=== PATIENT | male | born 1955 | race Caucasian/White ===

== ENCOUNTER 2023-11-19 07:35 | Outpatient (AMB) | payer MEDICARE, SELFPAY ==
--- NOTE | 2023-11-19 07:41 | MHC.PC.OV ---
Vital Signs 11/19/23 07:47 Height 5 ft 5 in Weight 157 lb BMI 26.1 BP 124/64 Blood Pressure Location Lt brachial Position Sitting Pulse 71 Pulse Source Pulse Oximeter Pulse Oximetry (%) 95 Oxygen Delivery Method Room Air Intake Visit Reasons: New patient-Left leg discomfort Intake Note: Pt is here today as a New Patient to [facility] and c/o Lt leg discomfort Allergies No Known Allergies Allergy (Verified 11/19/23 07:47) Medication List - Last Reconciled 11/19/23 by Rosa Banegas MD No Known Home Meds Tobacco use date assessed: 11/19/23 Fall risk assessment: No Falls in past year Last assessed Fall Risk: 11/19/23 Dental Screening Dental Screen Date: 11/19/23 Did you have a dental visit in the last 12 months?: No Was dental information given to patient?: Patient declined HPI New patient-Left leg discomfort HPI Details Patient presents for new patient visit. He reports chronic left lower extremity discomfort and some swelling worse at the end of the day for many years. He denies leg ulcers. [facility] Surgical History (Updated 11/17/23 @ 14:32 by Kath Nogueira [facility]) History of prostate surgery Family History (Updated 11/19/23 @ 08:18 by Rosa Banegas MD) Mother Heart attack Father No problems noted. Social History Housing: House Patient Tobacco Use Status: Former Tobacco user e-Cigarette/Vaping Use: Never Used service: Yes Current occupational status: retired Cognitive needs: No Hearing needs: No Vision needs: Yes Questionnaire PHQ-9 Over the last 2 weeks, how often have you been bothered by any of the following problems? 1. Little interest or pleasure in doing things: several days 2. Feeling down, depressed, or hopeless: several days 3. Trouble falling or staying asleep, or sleeping too much: several days 4. Feeling tired or having little energy: several days 5. Poor appetite or overeating: not at all 6. Feeling bad about yourself - or that you are a failure or have let yourself or your family down: not at all 7. Trouble concentrating on things, such as reading the newspaper or watching television: not at all 8. Moving or speaking so slowly that other people could have noticed. Or the opposite - being so fidgety or restless that you have been moving around a lot more than usual: not at all 9. Thoughts that you would be better off or of hurting yourself in some way: not at all Total score: 4 Depression Screening Interpretation: Negative Depression Screening Done: Yes 00421 - PHQ-9 Billing: Yes Source: Developed by Drs. Hunter Adams, Inocencia Watters, Jason Franco and colleagues, with an educational ester from [employer]. Thrive Questionnaire Date Thrive assessed: 11/19/23 I am a: Patient What is your living situation today?: I have a steady place to live Within the past 12 months, did the food you bought not last and you didn't have the money to get more?: Sometimes True Within the past 12 months, did you worry whether your food would run out before you got money to buy more?: Sometimes True Do you have trouble paying for medicines?: Yes Do you have trouble getting transportation to medical appointments?: No Do you have trouble paying your heating and electricity bill?: Yes Do you have trouble taking care of your child, family member or friend?: No Do you have trouble with day-to-day activities such as bathing, preparing meals, shopping, managing finances, etc.?: No Are you currently unemployed and looking for a job?: No Are you interested in more education?: No THRIVE Score: 3 AUDIT C Alcohol Use Questionnaire (AUDIT-C) 1. How often do you have a drink containing alcohol?: Monthly or less 2. How many drinks containing alcohol do you have on a typical day when you are drinking?: 1 or 2 3. How often do you have six or more drinks on one occasion?: Never Total Score: 1 YESICA-7 AMB Questionnaire YESICA-7 Date YESICA - 7 assessed: 11/19/23 Feeling nervous, anxious, or on edge: 1 = Several days Not being able to stop or control worryin = Several days Worrying too much about different things: 2 = More than half the days Trouble relaxin = Several days Being so restless that it is hard to sit still: 1 = Several days Becoming easily annoyed or irritable: 2 = More than half the days Feeling afraid as if something awful might happen: 1 = Several days Total YESICA-7 score (0-4 normal; 5-9 mild; 10-14 moderate; 15-21 severe): 9 Source: Developed by Drs. Hunter Adams, Inocencia Watters, Jason Franco and colleagues, with an educational ester from [employer]. Review of Systems Const All systems reviewed & are unremarkable except as noted in HPI and below Reports no additional complaints Eyes Reports no additional complaints ENT Reports no additional complaints Card Reports no additional complaints Resp Reports no additional complaints GI Reports no additional complaints Reports no additional complaints Physical exam (Primary Care) Vital Signs: Last Vital Signs Pulse 71 11/19/23 07:47 BP 124/64 11/19/23 07:47 Pulse Ox 95 11/19/23 07:47 Oxygen Delivery Method Room Air 11/19/23 07:47 BMI result Body Mass Index 26.1 Tobacco/Smoking Status: Tobacco use Status Tobacco use date assessed 11/19/23 11/19/23 07:55 Patient Tobacco Use Status Former Tobacco user 11/19/23 07:55 e-Cigarette/Vaping Use Never Used 11/19/23 07:55 PHQ-9: PHQ-9 Score PHQ-9: Total score 4 11/19/23 07:55 Depression Screening Interpretation: Negative Thrive Assessment: Date of Thrive Assessment Date Thrive assessed 11/19/23 11/19/23 07:55 Const General: no acute distress HENMT Head: Yes normal to inspection Ears: hearing grossly normal bilaterally Face and sinus: Yes normal facial exam Mouth: Normal oral and palatal mucosa present Throat: Yes posterior oropharynx normal Eyes General: appearance normal, both eyes and all related structures Neck Neck: Yes no lymphadenopathy and Yes supple Resp Effort & Inspection: normal respiratory effort Auscultation: clear to auscultation bilaterally Cardio Rhythm: regular rhythm Heart sounds: S1 normal heart sound present and S2 normal heart sound present GI Inspection: Yes normal to inspection Palpation (GI): Soft to palpation Percussion: Yes normal to percussion Auscultation: normal bowel sounds Assessment and Plan Assessment & Plan (1) Annual physical exam: Code(s): Z00.00 - Encounter for general adult medical examination without abnormal findings Plan: WELL-BALANCED DIET REGULAR EXERCISE DISCUSSED WITH THE PATIENT. HE WILL RETURN FOR FASTING BLOOD WORK. PATIENT DECLINED COLONOSCOPY COLOGUARD WILL BE ORDERED (2) BPH (benign prostatic hyperplasia): Comment: S/P TURP x2, 202, 2022 , f/u PVU annual Code(s): N40.0 - Benign prostatic hyperplasia without lower urinary tract symptoms Plan: FOLLOW-UP WITH UROLOGY (3) Varicose veins of both lower extremities: Code(s): I83.93 - Asymptomatic varicose veins of bilateral lower extremities Plan: PATIENT WAS ADVISED TO WEAR COMPRESSION KNEE-HIGHS. HE DECLINED REFERRAL TO VASCULAR SURGEON Orders: Referrals Cologuard Test Z12.11 - Encounter for screening for malignant neoplasm of colon, Z12.12 - Encounter for screening for malignant neoplasm of rectum Coding Level of Care Code New Pt Level 4 (87245) Diagnoses Annual physical exam Z00.00 BPH (benign prostatic hyperplasia) N40.0 Varicose veins of both lower extremities I83.93
[2023-11-19 07:47] VITALS: BP 124/64; PULSE 71; O2SAT 95; BMI 26.1
== END 2023-11-19 08:32 | disposition home or self-care (01) ==
PROVIDERS: PCP Internal Medicine; Visit Provider Internal Medicine
DX: Z00.00 Encounter for general adult medical examination without abnormal findings (principal); N40.0 Benign prostatic hyperplasia without lower urinary tract symptoms; I83.93 Asymptomatic varicose veins of bilateral lower extremities
CPT/HCPCS: 99204

== ENCOUNTER 2023-11-25 07:07 | Outpatient (REF) | payer MEDICARE, SELFPAY ==
[2023-11-25 10:28] LABS: MANUAL DIFF FLAG NO
[2023-11-25 10:33] LABS: Basophils Absolute Auto 0.1 X10*3/uL (0.0-0.2); Basophils Percent Auto 0.8 % (0-2); Eosinophils Absolute Auto 0.4 X10*3/uL (0.0-0.4); Eosinophils Percent Auto 5.5 % (0-4); Hematocrit 42.1 % (42.0-52.0); Hemoglobin 14.3 g/dl (14.0-18.0); Imm Gran Abs Auto 0.02 X10*3/uL (0.00-0.03); Imm Gran Pct Auto 0.3 % (0.0-0.4); Lymphocytes Percent Auto 27.8 % (20-40); Mean Corpuscular Hemoglobin 31.6 pg (27.0-33.0); Mean Corpuscular Volume 92.9 fL (80.0-98.0); Mean Platelet Volume 10.4 fL (9.4-12.4); Monocytes Absolute Auto 0.5 X10*3/uL (0.1-1.2); Monocytes Percent Auto 6.2 % (2-11); Neutrophils Absolute Auto 4.3 x10*3/uL (2.0-8.3); Neutrophils Percent Auto 59.4 % (45-73); Platelet Count 155 X10*3/uL (160-400); Red Blood Count 4.53 X10*6/uL (4.60-5.80); Red Cell Distribution Width 13.1 % (11.0-16.0); White Blood Count 7.2 X10*3/uL (4.8-10.8)
[2023-11-25 10:48] LABS: Alanine Aminotransferase 13 U/L (0-40); Alkaline Phosphatase 95 U/L (39-117); Anion Gap 10 (12-20); Aspartate Amino Transferase 14 U/L (5-37); Bilirubin Total 0.5 mg/dL (0.0-1.0); Blood Urea Nitrogen 21 mg/dL (9-16); Calcium 9.5 mg/dL (8.4-10.2); Carbon Dioxide 29 mmol/L (22-29); Chloride 106 mmol/L (96-108); Cholesterol 193 mg/dL (<200); Estimated Glomerular Filt Rate 57; Glucose Fasting 137 mg/dL (60-99); HDL Cholesterol 39 mg/dL (>40); LDL Cholesterol Calculated 136 mg/dL (<100); Potassium 4.2 mmol/L (3.3-5.1); Sodium 141 mmol/L (135-145); Total Protein 7.1 g/dL (6.5-8.0); Triglycerides 90 mg/dL (<150)
== END 2023-11-25 07:08 | disposition home or self-care (01) ==
LOC: HO.HMGCLDS 07:07
PROVIDERS: PCP Internal Medicine; Visit Provider Internal Medicine
DX: Z00.00 Encounter for general adult medical examination without abnormal findings (principal); Z20.2 Contact with and (suspected) exposure to infections with a predominantly sexual mode of transmission
CPT/HCPCS: 36415; 80053; 80061; 85025

== ENCOUNTER 2023-11-29 07:27 | Outpatient (REF) | payer MEDICARE, SELFPAY ==
[2023-11-29 11:58] LABS: Appearance Urine Clear; Color Urine Yellow; Glucose Urine UA Negative (Negative); Leukocyte Esterase Urine Negative (Negative); Nitrite Urine Negative (Negative); Specific Gravity - Urine 1.015 (1.005-1.025); Urine Blood Negative (Negative); Urine Ketones Negative (Negative); Urine Protein Negative (Neg-Trace)
[2023-11-29 12:00] LABS: Bacteria Urine None Seen (None Seen); Hyaline Casts Urine 0-2 /LPF (0-2); RBC Urine 0-2 /HPF (0-2); Squamous Epithelial Cell Urine 0-2 /HPF (0-2); WBC Urine 0-5 /HPF (0-5)
[2023-11-29 12:05] LABS: Glucose Fasting 137 mg/dL (60-99)
[2023-11-29 12:09] LABS: Estimated Average Glucose 143 mg/dL; Hemoglobin A1c % 6.6 % (<6.0)
== END 2023-11-29 07:28 | disposition home or self-care (01) ==
LOC: HO.HMGCLDS 07:27
PROVIDERS: PCP Internal Medicine; Visit Provider Internal Medicine
DX: Z00.00 Encounter for general adult medical examination without abnormal findings (principal); R73.9 Hyperglycemia, unspecified
CPT/HCPCS: 36415; 81001; 82947; 83036

== ENCOUNTER 2024-03-08 07:27 | Outpatient (REF) | payer MEDICARE, SELFPAY ==
[2024-03-08 10:49] LABS: Alanine Aminotransferase 16 U/L (0-40); Albumin Level 4.4 g/dL (3.5-5.0); Alkaline Phosphatase 96 U/L (39-117); Anion Gap 14 (12-20); Aspartate Amino Transferase 17 U/L (5-37); Bilirubin Total 0.6 mg/dL (0.0-1.0); Blood Urea Nitrogen 22 mg/dL (9-16); Carbon Dioxide 28 mmol/L (22-29); Chloride 105 mmol/L (96-108); Estimated Glomerular Filt Rate > 60; Glucose Fasting 133 mg/dL (60-99); Potassium 4.8 mmol/L (3.3-5.1); Sodium 142 mmol/L (135-145); Total Protein 7.7 g/dL (6.5-8.0)
[2024-03-08 11:51] LABS: Estimated Average Glucose 131 mg/dL; Hemoglobin A1c % 6.2 % (<6.0)
== END 2024-03-08 07:28 | disposition home or self-care (01) ==
LOC: HO.HMGCLDS 07:27
PROVIDERS: PCP Internal Medicine; Visit Provider Internal Medicine
DX: R73.9 Hyperglycemia, unspecified (principal)
CPT/HCPCS: 36415; 80053; 83036

== ENCOUNTER 2024-03-19 12:07 | Outpatient (AMB) | payer MEDICARE, MEDICAID, SELFPAY ==
--- NOTE | 2024-03-19 12:26 | A.OFFPC_ITS ---
Vital Signs 03/19/24 12:27 Height 5 ft 5 in Weight 155 lb BMI 25.8 BP 122/74 Blood Pressure Location Rt brachial Position Sitting Pulse 71 Pulse Source Pulse Oximeter Pulse Oximetry (%) 95 Oxygen Delivery Method Room Air Intake Visit Reasons: Follow up on DM Allergies No Known Allergies Allergy (Verified 03/19/24 12:35) Tobacco use date assessed: 03/19/24 Dental Screening Dental Screen Date: 11/19/23 HPI Follow up on DM HPI Details Pt presents for f/u diet controlled DM. He has been following ADA diet and exercising regularly PFSH Surgical History History of prostate surgery Family History Mother Heart attack Father No problems noted. Social History Housing: House Patient Tobacco Use Status: Former Tobacco user e-Cigarette/Vaping Use: Never Used service: Yes Current occupational status: retired Cognitive needs: No Hearing needs: No Vision needs: Yes Questionnaire PHQ-9 Over the last 2 weeks, how often have you been bothered by any of the following problems? 1. Little interest or pleasure in doing things: not at all 2. Feeling down, depressed, or hopeless: not at all 3. Trouble falling or staying asleep, or sleeping too much: not at all 4. Feeling tired or having little energy: not at all 5. Poor appetite or overeating: not at all 6. Feeling bad about yourself - or that you are a failure or have let yourself or your family down: not at all 7. Trouble concentrating on things, such as reading the newspaper or watching television: not at all 8. Moving or speaking so slowly that other people could have noticed. Or the opposite - being so fidgety or restless that you have been moving around a lot more than usual: not at all 9. Thoughts that you would be better off or of hurting yourself in some way: not at all Total score: 0 Depression Screening Interpretation: Negative Depression Screening Done: Yes 29632 - PHQ-9 Billing: Yes Source: Developed by Drs. Hunter Adams, Jason Kaur and colleagues, with an educational ester from [employer]. Thrive Questionnaire Date Thrive assessed: 11/19/23 I am a: Patient What is your living situation today?: I have a steady place to live Within the past 12 months, did the food you bought not last and you didn't have the money to get more?: Sometimes True Within the past 12 months, did you worry whether your food would run out before you got money to buy more?: Sometimes True Do you have trouble paying for medicines?: Yes Do you have trouble getting transportation to medical appointments?: No Do you have trouble paying your heating and electricity bill?: Yes Do you have trouble taking care of your child, family member or friend?: No Do you have trouble with day-to-day activities such as bathing, preparing meals, shopping, managing finances, etc.?: No Are you interested in more education?: No Please select the resources that you would like help with: Food Currently or been in a relationship where the following occur: I choose not to answer THRIVE Score: 3 AUDIT C Alcohol Use Questionnaire (AUDIT-C) 1. How often do you have a drink containing alcohol?: Never Total Score: 0 YESICA-7 AMB Questionnaire YESICA-7 Date YESICA - 7 assessed: 03/19/24 Feeling nervous, anxious, or on edge: 0 = Not at all Not being able to stop or control worryin = Not at all Worrying too much about different things: 0 = Not at all Trouble relaxin = Not at all Being so restless that it is hard to sit still: 0 = Not at all Becoming easily annoyed or irritable: 0 = Not at all Feeling afraid as if something awful might happen: 0 = Not at all Total YESICA-7 score (0-4 normal; 5-9 mild; 10-14 moderate; 15-21 severe): 0 Source: Developed by Drs. Hunter Adams, Jason Kaur and colleagues, with an educational ester from [employer]. YESICA-7 Assessment Billing YESICA-7 Assessment Tool: YESICA-7 Assessment 95110 Review of Systems Const All systems reviewed & are unremarkable except as noted in HPI and below Eyes Reports no additional complaints ENT Reports no additional complaints Card Reports no additional complaints Resp Reports no additional complaints GI Reports no additional complaints Reports no additional complaints Physical exam (Primary Care) Vital Signs: Last Vital Signs Pulse 71 03/19/24 12:27 BP 122/74 03/19/24 12:27 Pulse Ox 95 03/19/24 12:27 Oxygen Delivery Method Room Air 03/19/24 12:27 BMI result Body Mass Index 25.8 Tobacco/Smoking Status: Tobacco use Status Tobacco use date assessed 03/19/24 03/19/24 12:37 Patient Tobacco Use Status Former Tobacco user 03/19/24 12:26 e-Cigarette/Vaping Use Never Used 03/19/24 12:26 PHQ-9: PHQ-9 Score PHQ-9: Total score 0 03/19/24 13:16 Depression Screening Interpretation: Negative Thrive Assessment: Date of Thrive Assessment Date Thrive assessed 11/19/23 03/19/24 12:26 Currently or been in a relationship where the following occur: I choose not to answer Const General: no acute distress HENMT Head: Yes normal to inspection Face and sinus: Yes normal facial exam Eyes General: appearance normal, both eyes and all related structures Neck Neck: Yes no lymphadenopathy and Yes supple Resp Effort & Inspection: normal respiratory effort Auscultation: clear to auscultation bilaterally Cardio Rhythm: regular rhythm Heart sounds: S1 normal heart sound present and S2 normal heart sound present Assessment and Plan Assessment & Plan (1) Hyperglycemia: Code(s): R73.9 - Hyperglycemia, unspecified Plan: A1c is down to 6.2. Continue ADA diet regular exercise follow-up in 6 months with a fasting labs before (2) BPH (benign prostatic hyperplasia): Comment: S/P TURP x2, 2021, 2022 , f/u PVU annual Code(s): N40.0 - Benign prostatic hyperplasia without lower urinary tract symptoms Coding Level of Care Code Est Pt Level 3 (58106) Diagnoses Hyperglycemia R73.9 BPH (benign prostatic hyperplasia) N40.0 Additional Codes YESICA-7 Assessment Billing - YESICA-7 Assessment Tool: YESICA-7 Assessment 95381 ([id number])
[2024-03-19 12:27] VITALS: BP 122/74; PULSE 71; O2SAT 95; BMI 25.8
== END 2024-03-19 13:24 | disposition home or self-care (01) ==
PROVIDERS: PCP Internal Medicine; Visit Provider Internal Medicine
DX: R73.9 Hyperglycemia, unspecified (principal); N40.0 Benign prostatic hyperplasia without lower urinary tract symptoms

== ENCOUNTER → 2024-03-19 12:07 | Outpatient (BNVA) | payer MEDICARE, SELFPAY | PROVIDERS: PCP Internal Medicine; Visit Provider Internal Medicine | DX: R73.9 Hyperglycemia, unspecified (principal); N40.0 Benign prostatic hyperplasia without lower urinary tract symptoms | CPT/HCPCS: 96127; 99212 ==

== ENCOUNTER 2024-06-15 09:46 | Outpatient (AMB) | payer MEDICARE, MEDICAID, SELFPAY ==
[2024-06-15 10:01] VITALS: BP 124/78; PULSE 73; O2SAT 98; BMI 26.5
--- NOTE | 2024-06-15 10:01 | MHC.PC.OV ---
Vital Signs 06/15/24 10:01 Height 5 ft 5 in Weight 159 lb BMI 26.5 BP 124/78 Blood Pressure Location Lt brachial Position Sitting Pulse 73 Pulse Source Pulse Oximeter Pulse Oximetry (%) 98 Oxygen Delivery Method Room Air Intake Visit Reasons: R ft swelling/pain Intake Note: Pt is here today for a sick visit. Pt c/o R foot pain and swelling for 2 weeks. Allergies No Known Allergies Allergy (Verified 06/15/24 10:01) Medication List - Last Reconciled 06/15/24 by Rosa Banegas MD No Known Home Meds Tobacco use date assessed: 06/15/24 Last assessed Fall Risk: 06/15/24 Dental Screening Dental Screen Date: 11/19/23 HPI R ft swelling/pain HPI Details Patient complains of 2 weeks of right foot swelling warmth and tenderness. Patient had similar episode last December was treated with prednisone prescribed by walk-in. Patient denies any change in her diet or activity injury. He has been taking 800 mg of ibuprofen twice a day with only temporary relief PFSH Surgical History History of prostate surgery Family History Mother Heart attack Father No problems noted. Social History Housing: House Patient Tobacco Use Status: Former Tobacco user e-Cigarette/Vaping Use: Never Used service: Yes Current occupational status: retired Cognitive needs: No Hearing needs: No Vision needs: Yes Questionnaire Thrive Questionnaire Date Thrive assessed: 03/19/24 I am a: Patient What is your living situation today?: I have a steady place to live Within the past 12 months, did the food you bought not last and you didn't have the money to get more?: Sometimes True Within the past 12 months, did you worry whether your food would run out before you got money to buy more?: Sometimes True Do you have trouble paying for medicines?: Yes Do you have trouble getting transportation to medical appointments?: No Do you have trouble paying your heating and electricity bill?: Yes Do you have trouble taking care of your child, family member or friend?: No Do you have trouble with day-to-day activities such as bathing, preparing meals, shopping, managing finances, etc.?: No Are you currently unemployed and looking for a job?: No Are you interested in more education?: No Please select the resources that you would like help with: Food Currently or been in a relationship where the following occur: I choose not to answer THRIVE Score: 3 YESICA-7 AMB Questionnaire YESICA-7 Date YESICA - 7 assessed: 03/19/24 Source: Developed by Drs. Hunter Adams, Inocencia Watters, Jason Franco and colleagues, with an educational ester from [email or web address]. Review of Systems Const All systems reviewed & are unremarkable except as noted in HPI and below Eyes Reports no additional complaints ENT Reports no additional complaints Card Reports no additional complaints Resp Reports no additional complaints GI Reports no additional complaints Reports no additional complaints Physical exam (Primary Care) Vital Signs: Last Vital Signs Pulse 73 06/15/24 10:01 BP 124/78 06/15/24 10:01 Pulse Ox 98 06/15/24 10:01 Oxygen Delivery Method Room Air 06/15/24 10:01 BMI result Body Mass Index 26.5 Tobacco/Smoking Status: Tobacco use Status Tobacco use date assessed 06/15/24 06/15/24 10:03 Patient Tobacco Use Status Former Tobacco user 06/15/24 10:03 e-Cigarette/Vaping Use Never Used 06/15/24 10:03 Thrive Assessment: Date of Thrive Assessment Date Thrive assessed 03/19/24 06/15/24 10:03 Currently or been in a relationship where the following occur: I choose not to answer Const General: no acute distress HENMT Throat: Yes posterior oropharynx normal Neck Neck: Yes supple Resp Effort & Inspection: normal respiratory effort Auscultation: clear to auscultation bilaterally Cardio Rhythm: regular rhythm Heart sounds: S1 normal heart sound present and S2 normal heart sound present Extrem Other: 2+ nonpitting edema warmth and tenderness on the dorsum of right foot, slightly decreased range of motion in the right ankle Coding Level of Care Code Est Pt Level 3 (94331) Diagnoses Hyperglycemia R73.9 Foot pain, right M79.671 Assessment & Plan Assessment & Plan (1) Hyperglycemia: Code(s): R73.9 - Hyperglycemia, unspecified Category: Medical Plan: Check A1c, continue ADA diet increase exercise weight loss discussed with the patient (2) Foot pain, right: Code(s): M79.671 - Pain in right foot Category: Medical Plan: For recurrent episodes of right foot swelling inflammation uric acid level will be checked x-ray of right foot will be obtained colchicine 0.6 mg twice a day for 7 days is prescribed. Patient was given low purine diet information Orders: Orders Uric Acid Today R73.9 - Hyperglycemia, unspecified, Z00.00 - Encounter for general adult medical examination without abnormal findings XR foot RT 2V Today M79.671 - Pain in right foot Comprehensive Met. Panel Today R73.9 - Hyperglycemia, unspecified, Z00.00 - Encounter for general adult medical examination without abnormal findings Hemoglobin A1c Today R73.9 - Hyperglycemia, unspecified, Z00.00 - Encounter for general adult medical examination without abnormal findings Complete Blood Count Auto Diff Today R73.9 - Hyperglycemia, unspecified, Z00.00 - Encounter for general adult medical examination without abnormal findings Medications: New colchicine 0.6 mg PO BID 14 tabs 0RF
== END 2024-06-15 13:05 | disposition home or self-care (01) ==
PROVIDERS: PCP Internal Medicine; Visit Provider Internal Medicine
DX: R73.9 Hyperglycemia, unspecified (principal); M79.671 Pain in right foot

== ENCOUNTER 2024-06-15 09:46 | Outpatient (REF) | payer MEDICARE, MEDICAID, SELFPAY ==
--- NOTE | ~2024-06-15 | XR_ITS ---
EXAMINATION: XR FOOT, RIGHT CLINICAL INFORMATION: R73.9 - Hyperglycemia, unspecified. COMPARISON: None available. TECHNIQUE: AP, lateral, and oblique views of the right foot. FINDINGS: Diffuse demineralization. Toes are flexed, limiting visualization. Minimal tiny plantar calcaneal spur. Minimal calcification/periosteal reaction of uncertain significance along the plantar aspect of the calcaneus. Joint spaces are preserved. XR/XR foot RT 2V IMPRESSION: Diffuse demineralization. Minimal calcification/periosteal reaction of uncertain significance along the plantar aspect of the calcaneus. This study was presented today to June 15, 2024 for interpretation. Stat results provided at this time as requested by referring provider. Electronically signed by: Sandra Davis MD 06/15/2024 12:11 PM [facility]
[2024-06-15 13:16] LABS: MANUAL DIFF FLAG NO
[2024-06-15 13:26] LABS: Basophils Absolute Auto 0.1 X10*3/uL (0.0-0.2); Basophils Percent Auto 0.7 % (0-2); Eosinophils Absolute Auto 0.4 X10*3/uL (0.0-0.4); Eosinophils Percent Auto 4.9 % (0-4); Hematocrit 39.3 % (42.0-52.0); Hemoglobin 13.4 g/dl (14.0-18.0); Imm Gran Abs Auto 0.03 X10*3/uL (0.00-0.03); Imm Gran Pct Auto 0.4 % (0.0-0.4); Lymphocytes Absolute Auto 2.1 X10*3/uL (1.2-4.9); Mean Corpuscular HGB Conc 34.1 g/dl (31.0-36.0); Mean Corpuscular Hemoglobin 31.2 pg (27.0-33.0); Mean Corpuscular Volume 91.6 fL (80.0-98.0); Mean Platelet Volume 10.1 fL (9.4-12.4); Monocytes Absolute Auto 0.9 X10*3/uL (0.1-1.2); Monocytes Percent Auto 10.4 % (2-11); Neutrophils Absolute Auto 4.8 x10*3/uL (2.0-8.3); Neutrophils Percent Auto 58.6 % (45-73); Platelet Count 169 X10*3/uL (160-400); Red Blood Count 4.29 X10*6/uL (4.60-5.80); Red Cell Distribution Width 13.1 % (11.0-16.0); White Blood Count 8.2 X10*3/uL (4.8-10.8)
[2024-06-15 13:38] LABS: Estimated Average Glucose 140 mg/dL; Hemoglobin A1C 160.4573 umol/L; Hemoglobin A1c % 6.5 % (<6.0); Total Hemoglobin (HGBA1C) 3407.6766 umol/L
[2024-06-15 13:47] LABS: Alanine Aminotransferase 10 U/L (0-40); Albumin Level 3.8 g/dL (3.5-5.0); Alkaline Phosphatase 88 U/L (39-117); Anion Gap 10 (12-20); Aspartate Amino Transferase 17 U/L (5-37); Bilirubin Total 0.5 mg/dL (0.0-1.0); Blood Urea Nitrogen 23 mg/dL (9-16); Calcium 8.9 mg/dL (8.4-10.2); Carbon Dioxide 27 mmol/L (22-29); Chloride 108 mmol/L (96-108); Estimated Glomerular Filt Rate > 60; Glucose Random 98 mg/dL (60-115); Potassium 3.9 mmol/L (3.3-5.1); Sodium 141 mmol/L (135-145); Total Protein 7.3 g/dL (6.5-8.0); Uric Acid 6.5 mg/dL (3.4-7.0)
== END 2024-06-15 09:47 | disposition home or self-care (01) ==
LOC: HO.HMGCX 09:46
PROVIDERS: PCP Internal Medicine; Visit Provider Internal Medicine
DX: Z00.00 Encounter for general adult medical examination without abnormal findings (principal); R73.9 Hyperglycemia, unspecified; M79.671 Pain in right foot
CPT/HCPCS: 36415; 73620; 80053; 83036; 84550; 85025; 99212

== ENCOUNTER 2024-09-11 08:44 | Outpatient (REF) | payer MEDICARE, SELFPAY ==
--- OUTSIDE RECORDS SUMMARY | 2024-09-11 08:49 | XMS_ITS | Clinical Summary ---
Author Organization [address] [place] [address] [place] [phone] Phone Care Team Providers Care Toy Consultant Name Role Phone Basil Driscoll MD Primary Care Provider Allergies Active Allergy Reactions Criticality Noted Date Comments Pollen Extracts Rash 02/24/2024 Medications ibuprofen-glyce rin 600 mg kit Take 600 mg by mouth. 11/10/2023 Active triamcinolone acetonide (KENALOG-40) 40 mg/mL injection Inject 1 mL (40 mg total) into the joint. 01/19/2024 Active predniSONE 10 mg tablets,dose pack Take 6 tablets (60 mg total) by mouth. 12/29/2022 Active ibuprofen (ADVIL,MOTRIN) 600 mg tablet TAKE 1 TABLET BY MOUTH EVERY 6 HOURS NEEDED FOR PAIN FOR UP TO 30 DAYS 11/10/2023 Active naproxen (NAPROSYN) 500 mg tablet Take 1 tablet (500 mg total) by mouth 2 (two) times a day with meals. 07/02/2023 Active methylPREDNISol one (MEDROL DOSPAK) 4 mg tablet TAKE BY MOUTH DIRECTED ON PACKAGE INSERT 07/02/2023 Active Hospital, Clinic, or Other Facility Administered Medication Ordered Dose Route Frequency Start Date End Date Status lidocaine (XYLOCAINE) 1 % injection 3 mLIndications:Primary osteoarthritis of both knees 3 mL inj Once PRN Procedure 08/17/2024 08/17/2024 Ended lidocaine (XYLOCAINE) 1 % injection 3 mLIndications:Primary osteoarthritis of both knees 3 mL inj Once PRN Procedure 08/17/2024 08/17/2024 Ended triamcinolone acetonide (KENALOG-40) 40 mg/mL injection 40 mgIndications:Primary osteoarthritis of both knees 40 mg IAtc Once PRN Procedure 08/17/2024 08/17/2024 Ended triamcinolone acetonide (KENALOG-40) 40 mg/mL injection 40 mgIndications:Primary osteoarthritis of both knees 40 mg IAtc Once PRN Procedure 08/17/2024 08/17/2024 Ended Active Problems Problem Noted Date Diagnosed Date Acquired deviated nasal septum 02/24/2024 Allergic rhinitis 02/24/2024 Asthma, cough variant 02/24/2024 Benign localized prostatic h yperplasia with lower urinary tract symptoms (LUTS) 02/24/2024 Blood glucose abnormal 02/24/2024 Cough 02/24/2024 Dysthymic disorder 02/24/2024 GERD (gastroesophageal reflux disease) Hypertrophy of nasal turbinates 02/24/2024 Laryngopharyngeal reflux (LPR) 02/24/2024 Low back pain 02/24/2024 Low platelet count 02/24/2024 Primary osteoarthritis of fi rst carpometacarpal joint of right hand 09/16/2023 Ulnar impaction syndrome, right 09/16/2023 Encounters Date Type Department Care Team Description 08/17/2024 9:00 AM EST Office Visit Orthopedic Surgery - [address] [phone] Oksana Rockwell, [place] Primary osteoarthritis of both knees (Primary Dx) from Last 3 Months Immunizations Name Administration Dates Next Due Influenza Quadravalent, 0.5m l (Fluzone High-dose) 65yo and older 04/10/2023,03/11/2020 Influenza Quadrivalent, 0.5m l, preservative free (Fluarix; FluLaval; Fluzone) ages 6mo and older (Afluria) 3yo and older 06/06/2021 Influenza trivalent, 0.5mL ( Fluzone High-dose) 65yo and older 03/02/2024 Influenza trivalent, with pr eservative (Fluzone; Afluria) 6mo and older 05/26/2017,04/22/2016,04/01/2015,06/01 Pneumococcal conjugate 13 va lent (Prevnar 13, PCV13) 2mo and older 01/12/2019 Pneumococcal polysaccharide 23 valent (Pneumovax 23) 2yo and older 08/27/2013 Tdap Tetanus diptheria acell ular pertussis (Boostrix; Adacel) 7yo and older 08/18/2017 Surgical History Surgery Date Site/Laterality Comments OTHER SURGICAL HISTORY PROCEDURE: HISTORY OTHER; COMMENT: prostatectomyx 2 in august 2022 and september 2021 Medical History Medical History Date Comments BPH (benign prostatic hyperplasia) DX:BPH (benign prostatic hyperplasia) Family History Medical History Relation Name Comments Hypertension Mother Stroke Mother Relation Name Status Comments Mother Social History Tobacco Use Types Packs/Day Years Used Date Smoking Tobacco: Never Smokeless Tobacco: Never Alcohol Use Standard Drinks/Week Comments Never 0 (1 standard drink = 0.6 oz pur e alcohol) Sex and Gender Information Value Date Recorded Sex Assigned at Not on file Legal Sex Male 1:59 PM EST Gender Identity Not on file Sexual Orientation Not on file Obstetrics History Last Filed Vital Signs Vital Sign Reading Time Taken Comments Blood Pressure 138/60 11/10/2023 11:11 AM EDT Pulse 68 11/10/2023 11:11 AM EDT Temperature - - Respiratory Rate - - Oxygen Saturation - - Inhaled Oxygen Concentration - - Weight 70.3 kg (155 lb) 11/10/2023 11:11 AM EDT Height 165.1 cm (5' 5 ) 11/10/2023 11:11 AM EDT Body Mass Index 25.79 11/10/2023 11:11 AM EDT Plan of Treatment Upcoming Encounters Date Type Department Care Team (Late st Contact Info) Description 10/19/2024 9:45 AM EDT Office Visit Orthopedic Surgery - [place] [address] [phone] Elliott Shoemaker DPM [address] [address] 11/10/2024 9:00 AM EDT Office Visit Adult Medicine [id number] [place] [phone] Basil Driscoll MD [address] [place] [address] (work) Health Maintenance Due Date Last Done Comments Zoster Vaccines (1 of 2) 2003 RSV Immunization Patients 60+ Years Old (1 - Risk 60-74 years 1-dose series) 2013 Cholesterol Screening (Lipid Panel) 05/29/2022 Colorectal Cancer Screening: Colonoscopy 05/29/2022 Depression Screening 05/29/2022 Falls Risk Assessment 05/29/2022 Hepatitis C Screening 05/29/2022 Medicare Annual Wellness Visit 05/29/2022 Social Influencers of Health Screening 05/29/2022 Pneumococcal Vaccine: 50+ Years (3 of 3 - PCV20 or PCV21) 01/13/2024 01/12/2019, 08/27/2013 DTaP,Tdap,and Td Vaccines (2 - Td or Tdap) 08/18/2027 08/18/2017 Influenza Vaccine Completed 03/02/2024, , 06/06/2021, Additional history exists COVID-19 Vaccine Completed 05/18/2024, , 12/19/2021, Additional history exists HIB Vaccines Aged Out No longer eligi ble based on patient's age to complete this topic HPV Vaccines Aged Out No longer eligi ble based on patient's age to complete this topic Hepatitis A Vaccines Aged Out No long er eligible based on patient's age to complete this topic Hepatitis B Vaccines Aged Out No long er eligible based on patient's age to complete this topic IPV Vaccines Aged Out No longer eligi ble based on patient's age to complete this topic MMR Vaccines Aged Out No longer eligi ble based on patient's age to complete this topic Meningococcal ACWY Vaccine Aged Out N o longer eligible based on patient's age to complete this topic Meningococcal B Vacine Aged Out No lo nger eligible based on patient's age to complete this topic RSV Immunization Patients Under 20 months Aged Out No longer eligible based on patient's age to complete this topic Varicella Vaccines Aged Out No longer eligible based on patient's age to complete this topic Procedures Procedure Name Priority Date/Time Associated Diagnosis Comments NE ARTHROCENTESIS/ASP IRATION/INJECTION MAJOR JOINT/BURSA W/O U/S GUIDANCE Routine 08/17/2024 9:00 AM EST Primary osteoarthritis of both knees from Last 3 Months Results * NE ARTHROCENTESIS/ASPIRATION/INJECTION MAJOR JOINT/BURSA W/O U/S GUIDANCE (08/17/2024 9:00 AM EST) Oksana Peña PA - 08/17/2024 9:00 AM EST CHAPIS Butler ? 08/17/2024 10:43 AM L Inj/Asp: bilateral knee Indications: pain Details: 22 G needle, lateral approach Medications (Right): 3 mL lidocaine 1 %; 40 mg triamcinolone acetonide 40 mg/mL Medications (Left): 3 mL lidocaine 1 %; 40 mg triamcinolone acetonide 40 mg/mL Informed Consent: ??Site: ??Knee, lateral approach ??Laterality: ??Bilateral ??Relevant images/test results available and reviewed: yes ?Health status cleared: ??Yes ??Procedure/treatment, purpose, treatment alternatives, risks/potential complications and benefits explained: yes ?Risk/complications/benefits details: ??Risks of infection, thinning of the skin and temporary skin discoloration discussed. ??Discussed risks of temporary increased pain after injection and swelling and mild redness at injection site for couple days. ??Explained occasionally cortisone injection can cause facial flushing temporarily. ??Benefits pain management. ??For postop injection pain ice, Tylenol and/or NSAIDs if patient can take ??Patient questions answered: yes ?Patient agrees, verbalizes understanding, and wants to proceed: yes ?Consent given by: ??Patient ??Informed consent discussion completed by Physician/HARLEY with patient: ?? Verbal ??Pre-procedure timeout performed: yes ?? us Oksana [facility] IN CLINIC/BEDSIDE ORDERABLES Final Result from Last 3 Months Insurance [employer] MEDICARE ADVANTAGE MEDICAID - [place] [employer] MEDICARE Care Teams Toy Consultant Relationship Specialty Start Date End Date Basil Driscoll MD [address] [place] [address] PCP - General 01/22/23
--- OUTSIDE RECORDS SUMMARY | 2024-09-11 08:49 | XMS_ITS | Encounter Summary ---
Author Organization [facility] Address [id number] [place] [phone] Care Team Providers Care Employment Assistant Name Role Phone Basil Driscoll MD Primary Care Provider Reason for Referral * Orthopedic (Routine) - Pending Review Specialty Diagnoses / Procedures Referred By Nayana t Referred To Contact Orthopedic Surgery / Orthopaedic Surgery Diagnoses Primary osteoarthritis of both knees Procedures L Inj/Asp: bilateral knee Oksana Rockwell PA [address] [facility] [address] [address] Phone: tel: fax: Referral ID Status Reason Start Date Expiration Date V isits Requested Visits Authorized [id number] Pending Review 08/17/2024 08/17/2025 1 1 Reason for Visit * Reason Comments Pain Pain Encounter Details Date Type Department Care Team (Latest Contact Info) Description 08/17/2024 9:00 AM EST Office Visit Orthopedic Surgery - [place] [address] [facility] [address] [phone] Oksana Rockwell PA [address] [facility] [address] [phone] Primary osteoarthritis of both knees (Primary Dx) Social History Tobacco Use Types Packs/Day Years Used Date Smoking Tobacco: Never Smokeless Tobacco: Never Alcohol Use Standard Drinks/Week Comments Never 0 (1 standard drink = 0.6 oz pur e alcohol) Sex and Gender Information Value Date Recorded Sex Assigned at Not on file Legal Sex Male 1:59 PM EST Gender Identity Not on file Sexual Orientation Not on file documented as of this encounter Progress Notes * CHAPIS Butler - 08/17/2024 9:00 AM ESTAssociated Order(s): L Inj/Asp: bilateral knee Post-Procedure Diagnose(s): Primary osteoarthritis of both knees CHIEF COMPLAINT: Pain of the Left Knee and Pain of the Right Knee had concerns including Pain of the Left Knee and Pain of the Right Knee. IDENTIFIER: Kendrick Landon is a 69 y.o. old male SUBJECTIVE: Kendrick Landon is here for follow up on 08/17/2024 for left greater than right knee pain. Patient was seen by Dr. Amos for his right knee in February 2020 and was found to have arthritis of his right knee. He did have an MRI scan of his right knee but no MRI to the left. MRI of the right knee didnot show any significant meniscal pathology. Treatment for his knee pain has included ibuprofen andintermittent cortisone injections. He has not had cortisone to the right knee in a year. Left knee has been worse than right. No locking or buckling of the knee. Pain is more anterior over the patella and he does report some crepitus. Pain is worse with stairs. Last cortisone injection to left knee was in December which did help. PAST MEDICAL/SURGICAL HISTORY: Patient Active Problem List Diagnosis Date Noted ??? Acquired deviated nasal septum 02/24/2024 ??? Allergic rhinitis 02/24/2024 ??? Asthma, cough variant 02/24/2024 ??? Benign localized prostatic hyperplasia with lower urinary tract symptoms (LUTS) 02/24/2024 ??? Blood glucose abnormal 02/24/2024 ??? Cough 02/24/2024 ??? Dysthymic disorder 02/24/2024 ??? GERD (gastroesophageal reflux disease) 02/24/2024 ??? Hypertrophy of nasal turbinates 02/24/2024 ??? Laryngopharyngeal reflux (LPR) 02/24/2024 ??? Low back pain 02/24/2024 ??? Low platelet count (CMS/HCC) 02/24/2024 ??? Primary osteoarthritis of first carpometacarpal joint of right hand 09/16/2023 ??? Ulnar impaction syndrome, right 09/16/2023 Past Surgical History: Procedure Laterality Date ??? OTHER SURGICAL HISTORY PROCEDURE: HISTORY OTHER; COMMENT: prostatectomyx 2 in august 2022 and september 2021 MEDICATIONS DISCONTINUED/REORDERED: There are no discontinued medications. ACTIVE MEDICATIONS: Current Outpatient Medications on File Prior to Visit Medication Sig Dispense Refill ??? ibuprofen (ADVIL,MOTRIN) 600 mg tablet TAKE 1 TABLET BY MOUTH EVERY 6 HOURS NEEDED FOR PAIN FOR UP TO 30 DAYS ??? ibuprofen-glycerin 600 mg kit Take 600 mg by mouth. ??? methylPREDNISolone (MEDROL DOSPAK) 4 mg tablet TAKE BY MOUTH DIRECTED ON PACKAGE INSERT ??? naproxen (NAPROSYN) 500 mg tablet Take 1 tablet (500 mg total) by mouth 2 (two) times a day with meals. ??? predniSONE 10 mg tablets,dose pack Take 6 tablets (60 mg total) by mouth. ??? triamcinolone acetonide (KENALOG-40) 40 mg/mL injection Inject 1 mL (40 mg total) into the joint. No current facility-administered medications on file prior to visit. ALLERGIES: Allergies Allergen Reactions ??? Pollen Extracts Rash PHYSICAL EXAM: Visit Vitals Smoking Status Never APPEARANCE: Alert and in no acute distress EXTREMITIES: Extremities warm and well perfused without clubbing, cyanosis, or edema Bilateral knees no effusion, no warmth erythema. Negative Christopher test bilaterally and negative Apley grind. No instability. Mild medial lateral joint line tenderness. Positive patellofemoral crepitus. VASCULAR:well perfused with normal pulses in the distal extremities and no peripheral edema noted NEURO: Awake, alert and oriented SKIN: Skin color, texture, turgor normal. No rashes or lesions. PSYCH: does not appear depressed or anxious and oriented to time, place and person LABS/IMAGING: No results found for: HGBA1C Xrays reviewed: ORTHO X-RAY KNEE 3 VIEWS Date of Visit: 08/15/2023 Reason for visit: Left greater than right knee pain Views: Bermudez view and bilateral lateral and sunrise view bilateral knees Comparison: 2020 Findings: Moderate medial compartment DJD with joint space narrowing. Moderate patellofemoral arthritis. Slightly greater medial compartment joint space narrowing compared to 2020 Impression: IMPRESSION: 1. Primary osteoarthritis of both knees IMPRESSION: 1. Primary osteoarthritis of both knees PLAN: The details of the visit were reviewed with the patient. Pertinent history, and objective findings were reviewed, along with the diagnoses: Bilateral knee osteoarthritis. He does get intermittent cortisone injections and do help. Proceeded with bilateral cortisone injections today as both knees arehurting. He will call for an appointment as needed. Other options for conservative treatment for the knees anti-inflammatories and at home exercises. L Inj/Asp: bilateral knee Indications: pain Details: 22 G needle, lateral approach Medications (Right): 3 mL lidocaine 1 %; 40 mg triamcinolone acetonide 40 mg/mL Medications (Left): 3 mL lidocaine 1 %; 40 mg triamcinolone acetonide 40 mg/mL Informed Consent: Site: Knee, lateral approach Laterality: Bilateral Relevant images/test results available and reviewed: yes Health status cleared: Yes Procedure/treatment, purpose, treatment alternatives, risks/potential complications and benefits explained: yes Risk/complications/benefits details: Risks of infection, thinning of the skin and temporary skin discoloration discussed. Discussed risks of temporary increased pain after injection and swelling and mild redness at injection site for couple days. Explained occasionally cortisone injection can causefacial flushing temporarily. Benefits pain management. For postop injection pain ice, Tylenol and/or NSAIDs if patient can take Patient questions answered: yes Patient agrees, verbalizes understanding, and wants to proceed: yes Consent given by: Patient Informed consent discussion completed by Physician/HARLEY with patient: Verbal Pre-procedure timeout performed: yes Kendrick Landon acknowledges understanding of the above plan and agrees to follow recommendations and/or take medications as prescribed. No orders of the defined types were placed in this encounter. @ELECSIG@ documented in this encounter Plan of Treatment Upcoming Encounters Date Type Department Care Team (Late st Contact Info) Description 10/19/2024 9:45 AM EDT Office Visit Orthopedic Surgery [facility] [address] [phone] Elliott Shoemaker DPM [address] [address] 11/10/2024 9:00 AM EDT Office Visit [facility] [address] [place] [address] Basil Driscoll MD [address] [place], [place] documented as of this encounter Procedures Procedure Name Priority Date/Time Associated Diagnosis Comments [place] ARTHROCENTESIS/ASP IRATION/INJECTION MAJOR JOINT/BURSA W/O U/S GUIDANCE Routine 08/17/2024 9:00 AM EST Primary osteoarthritis of both knees documented in this encounter Results * MA ARTHROCENTESIS/ASPIRATION/INJECTION MAJOR JOINT/BURSA W/O U/S GUIDANCE (08/17/2024 9:00 AM EST) Narrative Oksana Rockwell PA - 08/17/2024 9:00 AM EST CHAPIS [...] Oksana [facility] IN CLINIC/BEDSIDE ORDERABLES Final Result documented in this encounter Visit Diagnoses Diagnosis Primary osteoarthritis of both knees- Primary documented in this encounter Administered Medications Inactive Administered Medications - up to 3 most recent administrations Medication Order MAR Action Action Date Dose Rate Site lidocaine (XYLOCAINE) 1 % injection 3 mL 3 mL, injection, Once PRN Procedure, Starting on Fri08/17/24 at 0900, For 1 doseIndications:Primary osteoarthritis of both knees Given 08/17/2024 9:00 AM EST 3 mL lidocaine (XYLOCAINE) 1 % injection 3 mL 3 mL, injection, Once PRN Procedure, Starting on Fri08/17/24 at 0900, For 1 doseIndications:Primary osteoarthritis of both knees Given 08/17/2024 9:00 AM EST 3 mL triamcinolone acetonide (KENALOG-40) 40 mg/mL injection 40 mg 40 mg, intra-articular, Once PRN Procedure, Starting on Fri08/17/24 at 0900, For 1 doseIndications:Primary osteoarthritis of both knees Given 08/17/2024 9:00 AM EST 40 mg triamcinolone acetonide (KENALOG-40) 40 mg/mL injection 40 mg 40 mg, intra-articular, Once PRN Procedure, Starting on Fri08/17/24 at 0900, For 1 doseIndications:Primary osteoarthritis of both knees Given 08/17/2024 9:00 AM EST 40 mg documented in this encounter Care Teams Employment Assistant Relationship Specialty Start Date End Date Basil Driscoll MD [address] [place] [address] PCP - General 01/22/23 documented as of this encounter
[2024-09-11 11:21] LABS: Appearance Urine Clear; Color Urine Yellow; Glucose Urine UA Negative (Negative); Leukocyte Esterase Urine Negative (Negative); Nitrite Urine Negative (Negative); Specific Gravity - Urine 1.015 (1.005-1.025); Urine Blood Negative (Negative); Urine Ketones Negative (Negative); Urine Protein Negative (Neg-Trace)
[2024-09-11 11:21] LABS: MANUAL DIFF FLAG NO
[2024-09-11 11:28] LABS: Bacteria Urine None Seen (None Seen); Hyaline Casts Urine 0-2 /LPF (0-2); RBC Urine 0-2 /HPF (0-2); Squamous Epithelial Cell Urine 0-2 /HPF (0-2); WBC Urine 0-5 /HPF (0-5)
[2024-09-11 11:38] LABS: Estimated Average Glucose 140 mg/dL; Hemoglobin A1C 186.7386 umol/L; Hemoglobin A1c % 6.5 % (<6.0); Total Hemoglobin (HGBA1C) 3933.4004 umol/L
[2024-09-11 11:45] LABS: Alanine Aminotransferase 15 U/L (0-40); Albumin Level 4.2 g/dL (3.5-5.0); Alkaline Phosphatase 99 U/L (39-117); Anion Gap 13 (12-20); Aspartate Amino Transferase 19 U/L (5-37); Bilirubin Total 0.6 mg/dL (0.0-1.0); Blood Urea Nitrogen 22 mg/dL (9-16); Calcium 9.3 mg/dL (8.4-10.2); Carbon Dioxide 28 mmol/L (22-29); Chloride 105 mmol/L (96-108); Cholesterol 203 mg/dL (<200); Estimated Glomerular Filt Rate > 60; Glucose Fasting 131 mg/dL (60-99); HDL Cholesterol 41 mg/dL (>40); LDL Cholesterol Calculated 143 mg/dL (<100); Potassium 4.4 mmol/L (3.3-5.1); Sodium 142 mmol/L (135-145); Total Protein 7.8 g/dL (6.5-8.0); Triglycerides 96 mg/dL (<150)
[2024-09-11 11:54] LABS: Basophils Absolute Auto 0.1 X10*3/uL (0.0-0.2); Basophils Percent Auto 0.9 % (0-2); Eosinophils Absolute Auto 0.3 X10*3/uL (0.0-0.4); Eosinophils Percent Auto 3.8 % (0-4); Hematocrit 45.4 % (42.0-52.0); Hemoglobin 15.2 g/dl (14.0-18.0); Imm Gran Abs Auto 0.02 X10*3/uL (0.00-0.03); Imm Gran Pct Auto 0.3 % (0.0-0.4); Lymphocytes Absolute Auto 1.9 X10*3/uL (1.2-4.9); Lymphocytes Percent Auto 27.4 % (20-40); Mean Corpuscular HGB Conc 33.5 g/dl (31.0-36.0); Mean Corpuscular Hemoglobin 30.9 pg (27.0-33.0); Mean Corpuscular Volume 92.3 fL (80.0-98.0); Mean Platelet Volume 10.9 fL (9.4-12.4); Monocytes Absolute Auto 0.5 X10*3/uL (0.1-1.2); Monocytes Percent Auto 7.4 % (2-11); Neutrophils Absolute Auto 4.1 x10*3/uL (2.0-8.3); Neutrophils Percent Auto 60.2 % (45-73); Platelet Count 134 X10*3/uL (160-400); Red Blood Count 4.92 X10*6/uL (4.60-5.80); Red Cell Distribution Width 14.3 % (11.0-16.0); White Blood Count 6.8 X10*3/uL (4.8-10.8)
== END 2024-09-11 08:45 | disposition home or self-care (01) ==
LOC: HO.HMGCLDS 08:44
PROVIDERS: PCP Internal Medicine; Visit Provider Internal Medicine
DX: R73.9 Hyperglycemia, unspecified (principal); N40.0 Benign prostatic hyperplasia without lower urinary tract symptoms; Z13.6 Encounter for screening for cardiovascular disorders; Z00.00 Encounter for general adult medical examination without abnormal findings
CPT/HCPCS: 36415; 80053; 80061; 81001; 83036; 85025

== ENCOUNTER 2024-09-13 10:40 | Outpatient (AMB) | payer MEDICARE, MEDICAID, SELFPAY ==
[2024-09-13 10:42] VITALS: BP 124/74; PULSE 59; RESP 18; TEMP 36.9; O2SAT 98; BMI 25.6
--- NOTE | 2024-09-13 10:42 | A.OFFPC_ITS ---
Vital Signs 09/13/24 10:42 Height 5 ft 5 in Weight 154 lb BMI 25.6 BP 124/74 Blood Pressure Location Lt brachial Position Sitting Respiration 18 Pulse 59 Pulse Source Pulse Oximeter Temp 98.4 F Temp Source Oral Pulse Oximetry (%) 98 Oxygen Delivery Method Room Air Intake Visit Reasons: 6 month follow-up Intake Note: Pt is here today for 6 months follow up visit. Allergies No Known Allergies Allergy (Verified 09/13/24 10:42) Medication List - Last Reconciled 09/13/24 by Rosa Banegas MD No Known Home Meds Tobacco use date assessed: 09/13/24 Fall risk assessment: No Falls in past year Last assessed Fall Risk: 09/13/24 Dental Screening Dental Screen Date: 09/13/24 Did you have a dental visit in the last 12 months?: No Did you have a dental problem in the last 6 months where you did not have access to dental care?: No Was dental information given to patient?: Patient declined HPI 6 month follow-up HPI Details Patient presents for the follow-up hyperlipidemia and hyperglycemia controlled on diet. Patient is established with urology for BPH. [facility] Surgical History History of prostate surgery Family History Mother Heart attack Father No problems noted. Social History Housing: House Patient Tobacco Use Status: Former Tobacco user e-Cigarette/Vaping Use: Never Used service: Yes Current occupational status: retired Cognitive needs: No Hearing needs: No Vision needs: Yes Questionnaire PHQ-9 Over the last 2 weeks, how often have you been bothered by any of the following problems? 1. Little interest or pleasure in doing things: not at all 2. Feeling down, depressed, or hopeless: not at all 3. Trouble falling or staying asleep, or sleeping too much: not at all 4. Feeling tired or having little energy: not at all 5. Poor appetite or overeating: not at all 6. Feeling bad about yourself - or that you are a failure or have let yourself or your family down: not at all 7. Trouble concentrating on things, such as reading the newspaper or watching television: not at all 8. Moving or speaking so slowly that other people could have noticed. Or the opposite - being so fidgety or restless that you have been moving around a lot more than usual: not at all 9. Thoughts that you would be better off or of hurting yourself in some way: not at all Total score: 0 Depression Screening Interpretation: Negative Depression Screening Done: Yes 89132 - PHQ-9 Billing: Yes Source: Developed by Drs. Hunter Adams, Inocencia Watters, Jason Franco and colleagues, with an educational ester from [employer]. Thrive Questionnaire Date Thrive assessed: 09/13/24 I am a: Patient What is your living situation today?: I have a steady place to live Within the past 12 months, did the food you bought not last and you didn't have the money to get more?: Sometimes True Within the past 12 months, did you worry whether your food would run out before you got money to buy more?: Sometimes True Do you have trouble paying for medicines?: Yes Do you have trouble getting transportation to medical appointments?: No Do you have trouble paying your heating and electricity bill?: Yes Do you have trouble taking care of your child, family member or friend?: No Do you have trouble with day-to-day activities such as bathing, preparing meals, shopping, managing finances, etc.?: No Are you currently unemployed and looking for a job?: No Are you interested in more education?: No Please select the resources that you would like help with: Food Currently or been in a relationship where the following occur: I choose not to answer THRIVE Score: 3 AUDIT C Alcohol Use Questionnaire (AUDIT-C) 1. How often do you have a drink containing alcohol?: Never 3. How often do you have six or more drinks on one occasion?: Never Total Score: 0 YESICA-7 AMB Questionnaire YESICA-7 Date YESICA - 7 assessed: 09/13/24 Feeling nervous, anxious, or on edge: 0 = Not at all Not being able to stop or control worryin = Not at all Worrying too much about different things: 0 = Not at all Trouble relaxin = Not at all Being so restless that it is hard to sit still: 0 = Not at all Becoming easily annoyed or irritable: 0 = Not at all Feeling afraid as if something awful might happen: 0 = Not at all Total YESICA-7 score (0-4 normal; 5-9 mild; 10-14 moderate; 15-21 severe): 0 Source: Developed by Drs. Hunter Adams, Inocencia Watters, Jason Franco and colleagues, with an educational ester from [employer]. YESICA-7 Assessment Billing YESICA-7 Assessment Tool: YESICA-7 Assessment 44690 Review of Systems Const All systems reviewed & are unremarkable except as noted in HPI and below Eyes Reports no additional complaints Card Reports no additional complaints Resp Reports no additional complaints GI Reports no additional complaints Reports no additional complaints Physical exam (Primary Care) Vital Signs: Last Vital Signs Temp 98.4 F 09/13/24 10:42 Pulse 59 09/13/24 10:42 Resp 18 09/13/24 10:42 BP 124/74 09/13/24 10:42 Pulse Ox 98 09/13/24 10:42 Oxygen Delivery Method Room Air 09/13/24 10:42 BMI result Body Mass Index 25.6 Tobacco/Smoking Status: Tobacco use Status Tobacco use date assessed 09/13/24 09/13/24 10:58 Patient Tobacco Use Status Former Tobacco user 09/13/24 10:42 e-Cigarette/Vaping Use Never Used 09/13/24 10:42 PHQ-9: PHQ-9 Score PHQ-9: Total score 0 09/13/24 15:53 Depression Screening Interpretation: Negative Thrive Assessment: Date of Thrive Assessment Date Thrive assessed 09/13/24 09/13/24 10:58 Currently or been in a relationship where the following occur: I choose not to answer Const General: no acute distress HENMT Head: Yes normal to inspection Mouth: Normal oral and palatal mucosa present Eyes General: appearance normal, both eyes and all related structures Resp Effort & Inspection: normal respiratory effort Auscultation: clear to auscultation bilaterally Cardio Rhythm: regular rhythm Heart sounds: S1 normal heart sound present and S2 normal heart sound present GI Inspection: Yes normal to inspection Coding Level of Care Code Est Pt Level 4 (08933) Diagnoses Anemia D64.9 Hyperglycemia R73.9 Hyperlipidemia E78.5 Additional Codes YESICA-7 Assessment Billing - YESICA-7 Assessment Tool: YESICA-7 Assessment 97864 ([id number]) PHQ-9 - 80011 - PHQ-9 Billing: Yes ([id number]) Assessment & Plan Assessment & Plan (1) Anemia: Code(s): D64.9 - Anemia, unspecified Category: Medical Plan: Resolved continue to monitor CBC (2) Hyperglycemia: Code(s): R73.9 - Hyperglycemia, unspecified Category: Medical Plan: A1c is 6.5, ADA diet regular physical activity weight loss discussed with the patient he declined medications, he will follow-up in 3 months with a fasting la bs before (3) Hyperlipidemia: Code(s): E78.5 - Hyperlipidemia, unspecified Category: Medical Plan: Low-cholesterol diet increase physical activity discussed with the patient care declined medications Orders: Orders Hemoglobin A1c 3 Months D64.9 - Anemia, unspecified, R73.9 - Hyperglycemia, unspecified, E78.5 - Hyperlipidemia, unspecified Comprehensive [place]. Panel Fast 3 Months D64.9 - Anemia, unspecified, R73.9 - Hyperglycemia, unspecified, E78.5 - Hyperlipidemia, unspecified Complete Blood Count Auto Diff 3 Months D64.9 - Anemia, unspecified, R73.9 - Hyperglycemia, unspecified, E78.5 - Hyperlipidemia, unspecified Lipid Panel 3 Months D64.9 - Anemia, unspecified, R73.9 - Hyperglycemia, unspecified, E78.5 - Hyperlipidemia, unspecified Microalbumin, Random (w Creat) 3 Months D64.9 - Anemia, unspecified, R73.9 - Hyperglycemia, unspecified, E78.5 - Hyperlipidemia, unspecified Medications: Discontinued colchicine Discontinued Reason: Doctor's Order 0.6 mg PO BID 14 tabs 0RF
== END 2024-09-13 12:54 | disposition home or self-care (01) ==
LOC: HO.HMCC 10:40
PROVIDERS: PCP Internal Medicine; Visit Provider Internal Medicine
DX: D64.9 Anemia, unspecified (principal); R73.9 Hyperglycemia, unspecified; E78.5 Hyperlipidemia, unspecified

== ENCOUNTER → 2024-09-13 10:40 | Outpatient (BNVA) | payer MEDICARE, OTHER, SELFPAY | PROVIDERS: PCP Internal Medicine; Visit Provider Internal Medicine | DX: D64.9 Anemia, unspecified (principal); E78.5 Hyperlipidemia, unspecified; R73.9 Hyperglycemia, unspecified | CPT/HCPCS: 96127; 99212 ==

== ENCOUNTER 2024-12-15 08:09 | Outpatient (REF) | payer OTHER, SELFPAY ==
--- OUTSIDE RECORDS SUMMARY | 2024-12-15 08:22 | XMS_ITS | Clinical Summary ---
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 GERD (gastroesophageal reflux disease) Hypertrophy of nasal turbinates 02/24/2024 Laryngopharyngeal reflux (LPR) 02/24/2024 Low back pain 02/24/2024 Low platelet count (CMS/HCC V24) 02/24/2024 Primary osteoarthritis of fi rst carpometacarpal joint of right hand 09/16/2023 Ulnar impaction syndrome, right 09/16/2023 Immunizations Name Administration Dates Next Due Influenza [...] 11/10/2023 11:11 AM EDT Plan of Treatment Health Maintenance Due Date Last Done Comments Zoster Vaccines (1 of 2) 2003 RSV Immunization Adult Patients (1 - Risk 60-74 years 1-dose series) 2013 Abdominal Aortic Aneurysm (AAA) Screen 05/29/2022 Cholesterol Screening (Lipid Panel) 05/29/2022 Colorectal Cancer Screening: Colonoscopy 05/29/2022 Depression Screening 05/29/2022 Falls Risk Assessment 05/29/2022 Hepatitis C Screening 05/29/2022 Medicare Annual Wellness Visit 05/29/2022 Social Influencers of Health Screening 05/29/2022 Pneumococcal Vaccine: 50+ Years (3 of 3 - PCV20 or PCV21) 01/13/2024 01/12/2019, 08/27/2013 COVID-19 Vaccine ( - season) 2024 05/18/2024, 04/26/2023, 12/19/2021, Additional history exists DTaP,Tdap,and Td Vaccines (2 - Td or Tdap) 08/18/2027 08/18/2017 Influenza Vaccine Completed 03/02/2024, , 06/06/2021, Additional history exists HIB Vaccines Aged Out [...] age to complete this topic Meningococcal B Vaccine Aged Out No l onger eligible based on patient's age to complete this topic RSV Immunization Patients Under 20 months Aged Out No longer eligible based on patient's age to complete this topic Varicella Vaccines Aged Out No longer eligible based on patient's age to complete this topic Insurance [employer] MEDICARE ADVANTAGE MEDICAID - [place] [employer] MEDICARE Care Teams Hydraulic Press Operator Relationship Specialty Start Date End Date Basil Driscoll MD [address] [place] [address] PCP - General 01/22/23
[2024-12-15 10:22] LABS: MANUAL DIFF FLAG NO
[2024-12-15 10:24] LABS: Basophils Absolute Auto 0.1 X10*3/uL (0.0-0.2); Eosinophils Absolute Auto 0.4 X10*3/uL (0.0-0.4); Hematocrit 41.9 % (42.0-52.0); Hemoglobin 14.1 g/dl (14.0-18.0); Imm Gran Abs Auto 0.01 X10*3/uL (0.00-0.03); Imm Gran Pct Auto 0.2 % (0.0-0.4); Lymphocytes Absolute Auto 1.7 X10*3/uL (1.2-4.9); Lymphocytes Percent Auto 27.3 % (20-40); Mean Corpuscular HGB Conc 33.7 g/dl (31.0-36.0); Mean Corpuscular Hemoglobin 31.5 pg (27.0-33.0); Mean Corpuscular Volume 93.5 fL (80.0-98.0); Mean Platelet Volume 10.6 fL (9.4-12.4); Monocytes Absolute Auto 0.4 X10*3/uL (0.1-1.2); Monocytes Percent Auto 6.6 % (2-11); Neutrophils Absolute Auto 3.6 x10*3/uL (2.0-8.3); Neutrophils Percent Auto 58.9 % (45-73); Platelet Count 149 X10*3/uL (160-400); Red Blood Count 4.48 X10*6/uL (4.60-5.80); Red Cell Distribution Width 13.5 % (11.0-16.0); White Blood Count 6.2 X10*3/uL (4.8-10.8)
[2024-12-15 10:40] LABS: Alanine Aminotransferase 12 U/L (0-40); Albumin Level 4.2 g/dL (3.5-5.0); Alkaline Phosphatase 88 U/L (39-117); Anion Gap 10 (12-20); Aspartate Amino Transferase 19 U/L (5-37); Bilirubin Total 0.6 mg/dL (0.0-1.0); Blood Urea Nitrogen 23 mg/dL (9-16); Calcium 9.4 mg/dL (8.4-10.2); Carbon Dioxide 28 mmol/L (22-29); Chloride 107 mmol/L (96-108); Cholesterol 168 mg/dL (<200); Estimated Average Glucose 137 mg/dL; Estimated Glomerular Filt Rate > 60; Glucose Fasting 142 mg/dL (60-99); HDL Cholesterol 34 mg/dL (>40); Hemoglobin A1c % 6.4 % (<6.0); LDL Cholesterol Calculated 115 mg/dL (<100); Potassium 4.4 mmol/L (3.3-5.1); Sodium 141 mmol/L (135-145); Total Protein 7.1 g/dL (6.5-8.0); Triglycerides 97 mg/dL (<150)
[2024-12-15 10:49] LABS: Creatinine Urine 74.14 mg/dL; Microalbumin Urine < 5.0 mg/L
== END 2024-12-15 08:10 | disposition home or self-care (01) ==
LOC: HO.HMGCLDS 08:09
PROVIDERS: PCP Internal Medicine; Visit Provider Internal Medicine
DX: E78.5 Hyperlipidemia, unspecified (principal); R73.9 Hyperglycemia, unspecified; D64.9 Anemia, unspecified
CPT/HCPCS: 36415; 80053; 80061; 82570; 83036; 85025

== ENCOUNTER 2024-12-17 11:38 | Outpatient (AMB) | payer OTHER, SELFPAY ==
--- OUTSIDE RECORDS SUMMARY | 2024-12-17 12:02 | XMS_ITS | Clinical Summary ---
Author Organization [address] [place] [address] [place] [phone] Phone Care Team Providers Care Glass Vial Filler Name Role Phone Basil Driscoll MD Primary [...] - [place] [employer] MEDIC[place] Care Teams Glass Vial Filler Relationship Specialty Start Date End Date Basil Driscoll MD [address] [place] [address] PCP - General 01/22/23
--- NOTE | 2024-12-17 12:05 | MHC.PC.OV ---
Vital Signs 12/17/24 12:06 Height 5 ft 5 in Weight 150 lb BMI 25.0 BP 118/68 Blood Pressure Location Lt brachial Position Sitting Respiration 18 Pulse 61 Pulse Source Pulse Oximeter Temp 98.4 F Temp Source Oral Pulse Oximetry (%) 95 Oxygen Delivery Method Room Air Intake Visit Reasons: Annual PE Intake Note: Pt is here today for PE. Allergies No Known Allergies Allergy (Verified 12/17/24 12:10) Medication List - Last Reconciled 12/17/24 by Rosa Banegas MD colchicine 0.6 mg PO DAILY metformin ER 750 mg PO DAILY Tobacco use date assessed: 12/17/24 Fall risk assessment: No Falls in past year Last assessed Fall Risk: 12/17/24 Dental Screening Dental Screen Date: 09/13/24 [facility] Medical History (Updated 12/17/24 @ 13:14 by Rosa Banegas MD) Hyperlipidemia DM type 2 (diabetes mellitus, type 2) Surgical History History of prostate surgery Family History Mother Heart attack Father No problems noted. Social History Housing: House Patient Tobacco Use Status: Former Tobacco user e-Cigarette/Vaping Use: Never Used service: Yes Current occupational status: retired Cognitive needs: No Hearing needs: No Vision needs: Yes Questionnaire Thrive Questionnaire Date Thrive assessed: 12/17/24 YESICA-7 AMB Questionnaire YESICA-7 Date YESICA - 7 assessed: 09/13/24 Source: Developed by Drs. Hunter Adams, Inocencia Watters, Jason Franco and colleagues, with an educational ester from [employer]. Review of Systems Const All systems reviewed & are unremarkable except as noted in HPI and below Reports no additional complaints Eyes Reports no additional complaints ENT Reports no additional complaints Card Reports no additional complaints Resp Reports no additional complaints GI Reports no additional complaints Reports no additional complaints Physical exam (Primary Care) Vital Signs: Last Vital Signs Temp 98.4 F 12/17/24 12:06 Pulse 61 12/17/24 12:06 Resp 18 12/17/24 12:06 BP 118/68 12/17/24 12:06 Pulse Ox 95 12/17/24 12:06 Oxygen Delivery Method Room Air 12/17/24 12:06 BMI result Body Mass Index 25.0 Tobacco/Smoking Status: Tobacco use Status Tobacco use date assessed 12/17/24 12/17/24 12:13 Patient Tobacco Use Status Former Tobacco user 12/17/24 12:13 e-Cigarette/Vaping Use Never Used 12/17/24 12:13 Thrive Assessment: Date of Thrive Assessment Date Thrive assessed 12/17/24 12/17/24 12:13 Const General: no acute distress HENMT Ears: hearing grossly normal bilaterally Throat: Yes posterior oropharynx normal Eyes General: appearance normal, both eyes and all related structures Neck Neck: Yes supple Resp Effort & Inspection: normal respiratory effort Auscultation: clear to auscultation bilaterally Cardio Rhythm: regular rhythm Heart sounds: S1 normal heart sound present and S2 normal heart sound present GI Inspection: Yes normal to inspection Palpation (GI): Soft to palpation Percussion: Yes normal to percussion Auscultation: normal bowel sounds Coding Level of Care Code Est Pt Prev Care >65y(51612) Diagnoses BPH (benign prostatic hyperplasia) N40.0 Annual physical exam Z00.00 Colonoscopy refused Z53.20 Hyperlipidemia E78.5 DM type 2 (diabetes mellitus, type 2) E11.9 Assessment & Plan Assessment & Plan (1) BPH (benign prostatic hyperplasia): Comment: S/P TURP x2, 2021, 2022 , f/u PVU annual Code(s): N40.0 - Benign prostatic hyperplasia without lower urinary tract symptoms Category: Medical Plan: Follow-up with urology (2) Annual physical exam: Code(s): Z00.00 - Encounter for general adult medical examination without abnormal findings Category: Medical Plan: Well-balanced diet regular physical activity discussed with the patient (3) Colonoscopy refused: Comment: 10/2024, refused Cologuard Code(s): Z53.20 - Procedure and treatment not carried out because of patient's decision for unspecified reasons Category: Medical Plan: Patient refused Cologuard and colonoscopy (4) Hyperlipidemia: Comment: diet controlled Code(s): E78.5 - Hyperlipidemia, unspecified Category: Medical Plan: Continue low-cholesterol diet (5) DM type 2 (diabetes mellitus, type 2): Code(s): E11.9 - Type 2 diabetes mellitus without complications Category: Medical Plan: A1c is 6.4, ADA diet regular physical activity discussed with the patient's start metformin ER 750 follow-up in 4 months with a fasting labs before Orders: Orders Comprehensive [place]. Panel Fast 4 Months E11.9 - Type 2 diabetes mellitus without complications, E78.5 - Hyperlipidemia, unspecified, Z00.00 - Encounter for general adult medical examination without abnormal findings Lipid Panel 4 Months E11.9 - Type 2 diabetes mellitus without complications, E78.5 - Hyperlipidemia, unspecified, Z00.00 - Encounter for general adult medical examination without abnormal findings Hemoglobin A1c 4 Months E11.9 - Type 2 diabetes mellitus without complications, E78.5 - Hyperlipidemia, unspecified, Z00.00 - Encounter for general adult medical examination without abnormal findings Medications: New colchicine 0.6 mg PO DAILY 30 tabs 1RF metformin ER 750 mg PO DAILY 90 tabs 3RF
[2024-12-17 12:06] VITALS: BP 118/68; PULSE 61; RESP 18; TEMP 36.9; O2SAT 95; BMI 25.0
== END 2024-12-17 13:14 | disposition home or self-care (01) ==
PROVIDERS: PCP Internal Medicine; Visit Provider Internal Medicine
DX: Z00.00 Encounter for general adult medical examination without abnormal findings (principal); E11.9 Type 2 diabetes mellitus without complications; N40.0 Benign prostatic hyperplasia without lower urinary tract symptoms; Z53.20 Procedure and treatment not carried out because of patient's decision for unspecified reasons; E78.5 Hyperlipidemia, unspecified

== ENCOUNTER → 2024-12-17 11:38 | Outpatient (BNVA) | payer OTHER, SELFPAY | PROVIDERS: PCP Internal Medicine; Visit Provider Internal Medicine | DX: Z00.00 Encounter for general adult medical examination without abnormal findings (principal); N40.0 Benign prostatic hyperplasia without lower urinary tract symptoms; E78.5 Hyperlipidemia, unspecified; E11.9 Type 2 diabetes mellitus without complications | CPT/HCPCS: 99397 ==

== ENCOUNTER 2025-04-16 08:37 | Outpatient (REF) | payer OTHER, SELFPAY ==
--- OUTSIDE RECORDS SUMMARY | 2025-04-16 08:41 | XMS_ITS | Clinical Summary ---
Author Organization [address] [place] [address] [place] [phone] Phone Care Team Providers Care Car Servicer Name Role Phone Rosa Banegas MD Primary Care Provider [phone] Allergies Active Allergy Reactions Criticality Noted Date [...] MOUTH DIRECTED ON PACKAGE INSERT 07/02/2023 Active metFORMIN XR (GLUCOPHAGE-XR) 750 mg 24 hr tablet Take 1 tablet (750 mg total) by mouth 1 (one) time each day. 03/14/2025 Active colchicine (COLCRYS) 0.6 mg tablet 03/21/2025 Active Hospital, Clinic, or Other Facility Administered Medication Ordered Dose Route Frequency Start Date End Date Status dexAMETHasone (DECADRON) injection 4 mgIndications:Pain of right thumb 4 mg Once PRN Procedure 03/25/2025 03/25/2025 Ended lidocaine (XYLOCAINE) 1 % injection 0.5 mLIndications:Pain of right thumb .5 mL inj Once PRN Procedure 03/25/2025 03/25/2025 Ended lidocaine (XYLOCAINE) 1 % injection 3 mLIndications:Primary osteoarthritis of both knees 3 mL inj Once PRN Procedure 03/25/2025 03/25/2025 Ended triamcinolone acetonide (KENALOG-40) 40 mg/mL injection 40 mgIndications:Primary osteoarthritis of both knees 40 mg IAtc Once PRN Procedure 03/25/2025 03/25/2025 Ended Active Problems Problem Noted Date Diagnosed [...] Encounters Date Type Department Care Team Description 03/25/2025 2:45 PM EDT Office Visit Orthopedic Surgery - [address] [phone] Oksana Rockwell PA Primary osteoarthritis of both knees (Primary Dx); Pain of right thumb from Last 3 Months Immunizations Immunization Administration Dates Next Due Influenza Quadravalent, 0.5m [...] - Inhaled Oxygen Concentration - - Weight 65.8 kg (145 lb) 03/25/2025 2:41 PM EDT Height 165.1 cm (5' 5 ) 03/25/2025 2:41 PM EDT Body Mass Index 24.13 03/25/2025 2:41 PM EDT Plan of Treatment Upcoming Encounters Date Type Department Care Team (Late st Contact Info) Description 04/22/2025 10:15 AM EDT Office Visit Orthopedic Surgery - [address] [place] [address] Oksana Rockwell, [place] [address] [place] [phone] Health Maintenance Due Date Last Done Comments Colorectal Cancer Screening: Colonoscopy 1953 RSV Immunization Adult Patients (1 - Risk 50-74 years 1-dose series) 2003 Zoster Vaccines (1 of 2) 2003 Abdominal Aortic Aneurysm (AAA) Screen 05/29/2022 Cholesterol Screening (Lipid Panel) 05/29/2022 Falls Risk Assessment 05/29/2022 Hepatitis C Screening 05/29/2022 Medicare Annual Wellness Visit 05/29/2022 Social Influencers of Health Screening 05/29/2022 Pneumococcal Vaccine: 50+ Years (3 of 3 - PCV20 or PCV21) 01/13/2024 01/12/2019, 08/27/2013 Depression Screening 06/30/2024 COVID-19 Vaccine ( season) 2025 05/18/2024, 04/26/2023, 12/19/2021, Additional history exists Influenza Vaccine (#1) 2025 , 04/10/2023, 06/06/2021, Additional history exists DTaP,Tdap,and Td Vaccines (2 - Td or Tdap) 08/18/2027 08/18/2017 HIB Vaccines Aged Out No longer eligi [...] Procedure Name Priority Date/Time Associated Diagnosis Comments CT ARTHROCENTESIS/ASP IRATION/INJECTION SMALL JOINT/BURSA WO U/S GUIDANCE Routine 03/25/2025 2:45 PM EDT Pain of right thumb CT ARTHROCENTESIS/ASP IRATION/INJECTION MAJOR JOINT/BURSA W/O U/S GUIDANCE Routine 03/25/2025 2:45 PM EDT Primary osteoarthritis of both knees from Last 3 Months Results * CT ARTHROCENTESIS/ASPIRATION/INJECTION SMALL JOINT/BURSA WO U/S GUIDANCE (03/25/2025 2:45 PM EDT) Oksana Peña PA - 03/25/2025 2:45 PM EDT [place] 03/25/2025 4:22 PM S Inj/Asp: R thumb MCP Indications: pain and joint swelling Details: 25 G needle, dorsal approach Medications: 4 mg dexAMETHasone 4 mg/mL; 0.5 mL lidocaine 1 % Informed Consent: Laterality: Right Relevant images/test results available and reviewed: yes Health status cleared: Yes Procedure/treatment, purpose, treatment alternatives, risks/potential complications and benefits explained: yes Risk/complications/benefits details: Risks of infection, thinning of the skin and temporary skin discoloration discussed. Discussed risks of temporary increased pain after injection and swelling and mild redness at injection site for couple days. Explained occasionally cortisone injection can cause facial flushing temporarily. Benefits pain management. For postop injection pain ice, Tylenol and/or NSAIDs if patient can take Patient questions answered: yes Patient agrees, verbalizes understanding, and wants to proceed: yes Consent given by: Patient Informed consent discussion completed by Physician/HARLEY with patient: Verbal Pre-procedure timeout performed: yes us Oksana [facility] IN CLINIC/BEDSIDE ORDERABLES Final Result * CT ARTHROCENTESIS/ASPIRATION/INJECTION MAJOR JOINT/BURSA W/O U/S GUIDANCE (03/25/2025 2:45 PM EDT) Oksana Peña PA - 03/25/2025 2:45 PM EDT [place] 03/25/2025 4:22 PM L Inj/Asp: L knee Indications: pain Details: 22 G needle, lateral approach Medications: 3 mL lidocaine 1 %; 40 mg triamcinolone acetonide 40 mg/mL Informed Consent: Laterality: Left Relevant images/test results available and reviewed: yes Health status cleared: Yes Procedure/treatment, purpose, treatment alternatives, risks/potential complications and benefits explained: yes Risk/complications/benefits details: Risks of infection, thinning of the skin and temporary skin discoloration discussed. Discussed risks of temporary increased pain after injection and swelling and mild redness at injection site for couple days. Explained occasionally cortisone injection can cause facial flushing temporarily. Benefits pain management. For postop injection pain ice, Tylenol and/or NSAIDs if patient can take Patient questions answered: yes Patient agrees, verbalizes understanding, and wants to proceed: yes Consent given by: Patient Informed consent discussion completed by Physician/HARLEY with patient: Verbal Pre-procedure timeout performed: yes us Oksana [facility] IN CLINIC/BEDSIDE ORDERABLES Final Result from Last 3 Months Insurance [facility] MEDIC[facility] Member Subscriber Plan / Payer ( fective 2025-Present) Name:Kendrick Landon M Relation to Subscriber:Self Name:Kendrick Landon Payer ID:[id number] Group ID:Not on file Type:Not on file Address: [address] [place] [address] [facility] Member Subscriber Plan / Payer ( fective 2025-Present) Name:Kendrick Landon M Relation to Subscriber:Self Name:Kendrick Landon Payer ID:[id number] Group ID:Not on file Type:Not on file Address: [address] [place] [address] Care Teams Car Servicer Relationship Specialty Start Date End Date Rosa Banegas MD [address] [place] [address] PCP - General Internal Medicine 03/25/25
--- OUTSIDE RECORDS SUMMARY | 2025-04-16 08:41 | XMS_ITS ---
Author Name [facility] Organization Unknown Care Team Organization Name Specialty Phone Email Start Date End [facility] Oksana Rockwell Primary Care 12/06/20222023
[2025-04-16 11:47] LABS: Alanine Aminotransferase 22 U/L (0-40); Albumin Level 4.4 g/dL (3.5-5.0); Alkaline Phosphatase 107 U/L (39-117); Anion Gap 11 (12-20); Aspartate Amino Transferase 22 U/L (5-37); Blood Urea Nitrogen 21 mg/dL (9-16); Calcium 9.3 mg/dL (8.4-10.2); Carbon Dioxide 30 mmol/L (22-29); Chloride 103 mmol/L (96-108); Cholesterol 193 mg/dL (<200); Estimated Glomerular Filt Rate > 60; HDL Cholesterol 37 mg/dL (>40); Iron 82 mcg/dL (45-160); Percent Iron Saturation 29 % (15-50); Potassium 4.4 mmol/L (3.3-5.1); Sodium 140 mmol/L (135-145); Total Iron Binding Capacity 285 mcg/dL (228-428); Total Protein 7.2 g/dL (6.5-8.0); Triglycerides 156 mg/dL (<150); Unsaturated Iron Binding 203 ug/dL
[2025-04-16 12:21] LABS: Folate 11.2 ng/mL (> or = 4.0); Vitamin B12 569 pg/mL (200-900)
== END 2025-04-16 08:38 | disposition home or self-care (01) ==
LOC: HO.HMGCLDS 08:37
PROVIDERS: PCP Internal Medicine; Visit Provider Internal Medicine
DX: Z00.00 Encounter for general adult medical examination without abnormal findings (principal); E11.9 Type 2 diabetes mellitus without complications; E78.5 Hyperlipidemia, unspecified; D64.9 Anemia, unspecified
CPT/HCPCS: 36415; 80053; 80061; 82607; 82746; 83036; 83540

== ENCOUNTER 2025-04-19 09:32 | Outpatient (AMB) | payer OTHER, SELFPAY ==
[2025-04-19 09:42] VITALS: BP 126/74; PULSE 64; RESP 18; TEMP 36.9; O2SAT 96; BMI 25.8
--- NOTE | 2025-04-19 09:42 | A.OFFPC_ITS ---
Vital Signs 04/19/25 09:42 Height 5 ft 5 in Weight 155 lb BMI 25.8 BP 126/74 Blood Pressure Location Lt brachial Position Sitting Respiration 18 Pulse 64 Pulse Source Pulse Oximeter Temp 98.5 F Temp Source Oral Pulse Oximetry (%) 96 Oxygen Delivery Method Room Air Intake Visit Reasons: 4m f/u Intake Note: Pt is here today for 4 months follow up visit. Allergies No Known Allergies Allergy (Verified 04/19/25 09:43) Medication List - Last Reconciled 04/19/25 by Rosa Banegas MD colchicine 0.6 mg PO DAILY metformin ER 750 mg PO DAILY Tobacco use date assessed: 04/19/25 Fall risk assessment: No Falls in past year Last assessed Fall Risk: 04/19/25 Dental Screening Dental Screen Date: 09/13/24 HPI 4m f/u HPI Details Pt presents for f/u of DM2. Pt has not been following ADA diet and is not interested in monitoring his blood glucose. Pt c/o chronic R side neck pain for years, used to see a chiropractor who retired a few years ago and patient did not find a new chiropractor. Patient reports pain radiating to right upper extremity and he noticed some weakness and tremor when holding a fork or spoon. FORMERLY [facility], [facility] Medical History (Updated 04/19/25 @ 11:49 by Rosa Banegas MD) Cervical radiculopathy Annual physical exam BPH (benign prostatic hyperplasia) Colonoscopy refused Tremor Hyperlipidemia DM type 2 (diabetes mellitus, type 2) Surgical History History of prostate surgery Family History Mother Heart attack Father No problems noted. Social History Housing: House Patient Tobacco Use Status: Former Tobacco user e-Cigarette/Vaping Use: Never Used service: Yes Current occupational status: retired Cognitive needs: No Hearing needs: No Vision needs: Yes Questionnaire Thrive Questionnaire Date Thrive assessed: 12/17/24 I am a: Patient What is your living situation today?: I have a steady place to live Within the past 12 months, did the food you bought not last and you didn't have the money to get more?: Often true Within the past 12 months, did you worry whether your food would run out before you got money to buy more?: Often true Do you have trouble paying for medicines?: No Do you have trouble getting transportation to medical appointments?: No Do you have trouble paying your heating and electricity bill?: Yes Do you have trouble taking care of your child, family member or friend?: No Do you have trouble with day-to-day activities such as bathing, preparing meals, shopping, managing finances, etc.?: No Are you currently unemployed and looking for a job?: No Are you interested in more education?: No Currently or been in a relationship where the following occur: No concerns reported THRIVE Score: 3 AUDIT C Alcohol Use Questionnaire (AUDIT-C) 1. How often do you have a drink containing alcohol?: Monthly or less 2. How many drinks containing alcohol do you have on a typical day when you are drinking?: 1 or 2 3. How often do you have six or more drinks on one occasion?: Never Total Score: 1 YESICA-7 AMB Questionnaire YESICA-7 Date YESICA - 7 assessed: 09/13/24 Feeling nervous, anxious, or on edge: 3 = Nearly every day Not being able to stop or control worryin = Nearly every day Worrying too much about different things: 3 = Nearly every day Trouble relaxin = Several days Being so restless that it is hard to sit still: 1 = Several days Becoming easily annoyed or irritable: 3 = Nearly every day Feeling afraid as if something awful might happen: 3 = Nearly every day Total YESICA-7 score (0-4 normal; 5-9 mild; 10-14 moderate; 15-21 severe): 17 Source: Developed by Drs. Hunter Adams, Inocencia Watters, Jason Franco and colleagues, with an educational ester from [employer]. Review of Systems Const All systems reviewed & are unremarkable except as noted in HPI and below Eyes Reports no additional complaints ENT Reports no additional complaints Card Reports no additional complaints Resp Reports no additional complaints GI Reports no additional complaints Reports no additional complaints Physical exam (Primary Care) Vital Signs: Last Vital Signs Temp 98.5 F 04/19/25 09:42 Pulse 64 04/19/25 09:42 Resp 18 04/19/25 09:42 BP 126/74 04/19/25 09:42 Pulse Ox 96 04/19/25 09:42 Oxygen Delivery Method Room Air 04/19/25 09:42 BMI result Body Mass Index 25.8 Tobacco/Smoking Status: Tobacco use Status Tobacco use date assessed 04/19/25 04/19/25 09:49 Patient Tobacco Use Status Former Tobacco user 04/19/25 09:42 e-Cigarette/Vaping Use Never Used 04/19/25 09:42 Thrive Assessment: Date of Thrive Assessment Date Thrive assessed 12/17/24 04/19/25 09:42 Currently or been in a relationship where the following occur: No concerns reported Const General: no acute distress HENMT Head: Yes normal to inspection Face and sinus: Yes normal facial exam Mouth: Normal oral and palatal mucosa present Throat: Yes posterior oropharynx normal Eyes General: appearance normal, both eyes and all related structures Neck Neck: Yes no lymphadenopathy and Yes supple Resp Effort & Inspection: normal respiratory effort Auscultation: clear to auscultation bilaterally Cardio Rhythm: regular rhythm Heart sounds: S1 normal heart sound present and S2 normal heart sound present GI Inspection: Yes normal to inspection Palpation (GI): Soft to palpation Percussion: Yes normal to percussion Auscultation: normal bowel sounds Back/Spine/Pelvis Other: Decreased range of motion in cervical spine, paraspinal tenderness right more than left, deep tendon reflexes 2+ bilaterally, motor strength 4-5/5 in the right distal upper extremity, 5/5 in the left upper extremity Coding Level of Care Code Est Pt Level 4 (93140) Diagnoses Annual physical exam Z00.00 DM type 2 (diabetes mellitus, type 2) E11.9 Hyperlipidemia E78.5 BPH (benign prostatic hyperplasia) N40.0 Cervical radiculopathy M54.12 Assessment & Plan Assessment & Plan (1) Annual physical exam: Code(s): Z00.00 - Encounter for general adult medical examination without abnormal findings Category: Medical Plan: Well-balanced diet regular physical activity discussed with the patient. He refused colonoscopy or Cologuard (2) DM type 2 (diabetes mellitus, type 2): Comment: A1C 6.6 03/2025 Code(s): E11.9 - Type 2 diabetes mellitus without complications Category: Medical Plan: ADA diet regular physical activity discussed with the patient. He will continue metformin follow-up in 8 months with a fasting labs before, patient declined monitoring his blood glucose (3) Hyperlipidemia: Comment: diet controlled, PATIENT REFUSES TO TAKE STATIN Code(s): E78.5 - Hyperlipidemia, unspecified Category: Medical Plan: Continue low-cholesterol diet (4) BPH (benign prostatic hyperplasia): Comment: S/P TURP x2, 2021, 2022 , f/u PVU annual Code(s): N40.0 - Benign prostatic hyperplasia without lower urinary tract symptoms Category: Medical Plan: Follow-up with urology (5) Cervical radiculopathy: Comment: RUE weakness and tremor Code(s): M54.12 - Radiculopathy, cervical region Category: Medical Plan: Obtain MRI of cervical spine and referred to Neurology for right upper extremity tremor Orders: Orders Comprehensive [place]. Panel Fast 8 Months E11.9 - Type 2 diabetes mellitus without complications, Z00.00 - Encounter for general adult medical examination without abnormal findings Lipid Panel 8 Months E78.5 - Hyperlipidemia, unspecified Complete Blood Count Auto Diff 8 Months E11.9 - Type 2 diabetes mellitus without complications, Z00.00 - Encounter for general adult medical examination without abnormal findings Hemoglobin A1c 8 Months E11.9 - Type 2 diabetes mellitus without complications, Z00.00 - Encounter for general adult medical examination without abnormal findings Microalbumin, Random (w Creat) 8 Months E11.9 - Type 2 diabetes mellitus without complications, Z00.00 - Encounter for general adult medical examination without abnormal findings MR cervical spine wo con Today M54.12 - Radiculopathy, cervical region, R29.898 - Other symptoms and signs involving the musculoskeletal system Referrals Pain Management Referral E11.9 - Type 2 diabetes mellitus without complications, M54.2 - Cervicalgia, Z00.00 - Encounter for general adult medical examination without abnormal findings Neurology Referral R25.1 - Tremor, unspecified
== END 2025-04-19 11:53 | disposition home or self-care (01) ==
LOC: HO.HMCC 09:33
PROVIDERS: PCP Internal Medicine; Visit Provider Internal Medicine
DX: Z00.00 Encounter for general adult medical examination without abnormal findings (principal); E11.9 Type 2 diabetes mellitus without complications; E78.5 Hyperlipidemia, unspecified; N40.0 Benign prostatic hyperplasia without lower urinary tract symptoms; M54.12 Radiculopathy, cervical region

== ENCOUNTER → 2025-04-19 09:32 | Outpatient (BNVA) | payer OTHER, SELFPAY | PROVIDERS: PCP Internal Medicine; Visit Provider Internal Medicine | DX: Z00.00 Encounter for general adult medical examination without abnormal findings (principal); E11.9 Type 2 diabetes mellitus without complications; E78.5 Hyperlipidemia, unspecified; N40.0 Benign prostatic hyperplasia without lower urinary tract symptoms; M54.12 Radiculopathy, cervical region; R25.1 Tremor, unspecified; Z79.84 Long term (current) use of oral hypoglycemic drugs | CPT/HCPCS: 99212 ==

== ENCOUNTER 2025-05-09 13:15 | Outpatient (AMB) | payer OTHER, SELFPAY ==
[2025-05-09 13:25] VITALS: BP 120/82; PULSE 71; O2SAT 96; BMI 25.5
--- NOTE | 2025-05-09 13:25 | A.OFFVIS_ITS ---
Vital Signs 05/09/25 13:25 Height 5 ft 5 in Weight 153 lb 8 oz BMI 25.5 BP 120/82 Blood Pressure Location Rt brachial Position Sitting Pulse 71 Pulse Source Pulse Oximeter Pulse Oximetry (%) 96 Oxygen Delivery Method Room Air Intake Visit Reasons: INP- Tremor-Conf Intake Note: Tremor Human Intelligence Required: No Accompanied by: Partner Allergies No Known Allergies Allergy (Verified 05/09/25 13:25) Medication List - Last Reconciled 05/09/25 by Coby Christy MD colchicine 0.6 mg PO DAILY metformin ER 750 mg PO DAILY HPI Comments Details: 70y/o Right handed male comes for evaluation of tremors. The tremors started in right hand about 10 years ago. It was mild and intermittent and did not not affect his functioning. The tremors have worsening the past 2 year- he cannot hold a glass of water, has trouble eating with fork and spoon. His tremors are with posture and action . No rest tremors. Speech- normal No drooling No head tremors Handwriting- cannot write. He is Ok with personal hygiene and showers. No gait issues or balance issues. He has constipation . he sleeps good- has loud snoring ,occasional gasping arousals. He did a sleep study-burgos snot know the results. He says he was on zoloft xanax etc many years ago ( 30 years ago)for anxiety.He still has anxiety His father had tremors .No head injury No h/o alcohol overuse. FOR[facility]LY [facility] Medical History (Updated 05/09/25 @ 13:55 by Coby Christy MD) Coarse tremors Cervical radiculopathy Annual physical exam BPH (benign prostatic hyperplasia) Colonoscopy refused Tremor Hyperlipidemia DM type 2 (diabetes mellitus, type 2) Surgical History History of prostate surgery Family History Mother Heart attack Father No problems noted. Social History Housing: House Patient Tobacco Use Status: Former Tobacco user e-Cigarette/Vaping Use: Never Used service: Yes Current occupational status: retired Cognitive needs: No Hearing needs: No Vision needs: Yes Physical Exam Vital Signs: Last Vital Signs Pulse 71 05/09/25 13:25 BP 120/82 05/09/25 13:25 Pulse Ox 96 05/09/25 13:25 Oxygen Delivery Method Room Air 05/09/25 13:25 BMI result Body Mass Index 25.5 Const General: cooperative, healthy appearing, comfortable and no acute distress Nutritional Appearance: average body habitus Orientation/consciousness: patient oriented x3 HEENT Head: Yes normal to inspection Neuro Other: Right hand action and postural tremors Normal facial expression and blink Good speech Cog wheel rigidity 1 + right hand No voice tremors or head tremors mild decreased right shoulder movement Gait - mild stoop , decreased arm swing on the right FFM an dfoo taps decreased juan antonio R>L General: patient oriented x3, moves all extremities and no focal motor deficits Cranial nerves: Yes Bilaterally intact EOM present, Yes Nystagmus not present, Yes Normal facial strength present, Yes Midline tongue present, Yes Symmetric palate elevation present and Yes Ability to bilaterally elevate shoulders present Cognition (Neuro): normal cognition Deep tendon reflexes (DTR's): Right triceps reflex intensity grade: 1+, Left triceps reflex intensity grade: 1+, Rt Biceps (C5, C6): 1+, Left biceps reflex intensity grade: 1+, Right brachioradialis reflex intensity grade: 1+, Left brachioradialis reflex intensity grade: 1+, Right patellar reflex intensity grade: 1+ and Left patellar reflex intensity grade: 1+ Coordination: [id number] test normal Assessment & Plan Assessment & Plan (1) Coarse tremors: Comment: Right hand tremors - mostly with posture with cog wheel rigidity and decreased arm swing on RIGHT Code(s): G25.2 - Other specified forms of tremor Category: Medical Plan MRI Brain to further evaluate I will trial him on carbidopa/levodopa 25/100 1 tab bid Orders: Orders MR head/brain wo con Today G25.2 - Other specified forms of tremor Medications: New carbidopa-levodopa 25-100 mg 1 tab PO BID 60 tabs 6RF Coding Level of Care Code New Pt Level 4 (20427) Complex EM visit Add On G2211 Diagnoses Coarse tremors G25.2
--- OUTSIDE RECORDS SUMMARY | 2025-05-09 15:22 | XMS_ITS | Clinical Summary ---
Author Organization [address] [place] [address] [place] [id number] Phone Care Team Providers Care Telephoto Engineer Name Role Phone Rosa Banegas MD Primary Care Provider [phone] Allergies Active Allergy Reactions Criticality Noted Date [...] End Date Status dexAMETHasone (DECADRON) injection 4 mgIndications:Wrist tendonitis 4 mg Once PRN Procedure 04/22/2025 04/22/2025 Ended lidocaine (XYLOCAINE) 1 % injection 3 mLIndications:Arthri tis of knee, right 3 mL Once PRN Procedure 04/22/2025 04/22/2025 Ended lidocaine (XYLOCAINE) 1 % injection 0.5 mLIndications:Wrist tendonitis .5 mL Once PRN Procedure 04/22/2025 04/22/2025 Ended triamcinolone acetonide (KENALOG-40) 40 mg/mL injection 40 mgIndications:Arthri tis of knee, right 40 mg Once PRN Procedure 04/22/2025 04/22/2025 Ended Active Problems Problem Noted Date Diagnosed [...] Encounters Date Type Department Care Team Description 04/22/2025 10:15 AM EDT Office Visit Orthopedic Surgery [address] [phone] Oksana Rockwell PA Arthritis of knee, right (Primary Dx); Wrist tendonitis 03/25/2025 2:45 PM EDT Office Visit Orthopedic Surgery [address] [phone] Oksana Rockwell PA Primary osteoarthritis of both [...] 03/25/2025 2:41 PM EDT Plan of Treatment Health Maintenance Due [...] Procedure Name Priority Date/Time Associated Diagnosis Comments MO ARTHROCENTESIS/ASPI RATION/INJECTION MAJOR JOINT/BURSA W/O U/S GUIDANCE Routine 04/22/2025 10:15 AM EDT Arthritis of knee, right MO INJECTION SINGLE TENDON SHEATH OR LIGAMENT APONEUROSIS Routine 04/22/2025 10:15 AM EDT Wrist tendonitis MO ARTHROCENTESIS/ASPI RATION/INJECTION SMALL JOINT/BURSA WO U/S GUIDANCE Routine 03/25/2025 2:45 PM EDT Pain of right thumb MO ARTHROCENTESIS/ASPI RATION/INJECTION MAJOR JOINT/BURSA W/O U/S GUIDANCE Routine 03/25/2025 2:45 PM EDT Primary osteoarthritis of both knees from Last 3 Months Results * MO INJECTION SINGLE TENDON SHEATH OR LIGAMENT APONEUROSIS (04/22/2025 10:15 AM EDT) Oksana Peña PA - 04/22/2025 10:15 AM EDT [place]APIS [place] 04/22/2025 12:12 PM Hand / UE Inj/Asp: R wrist for FCR tunnel syndrome Indications: pain Details: 25 G needle Medications: 4 mg dexAMETHasone 4 mg/mL; 0.5 [...] NATION IN CLINIC/BEDSIDE ORDERABLES Final Result * MO ARTHROCENTESIS/ASPIRATION/INJECTION MAJOR JOINT/BURSA W/O U/S GUIDANCE (04/22/2025 10:15 AM EDT) Oksana Peña PA - 04/22/2025 10:15 AM EDT CHAPIS Butler 04/22/2025 12:12 PM L Inj/Asp: R knee Indications: pain Details: 22 G needle, lateral approach Medications: 3 mL lidocaine 1 %; 40 mg triamcinolone acetonide 40 mg/mL Informed Consent: Laterality: Right Relevant images/test results [...] patient can take Patient questions answered: yes Consent given by: Patient Informed consent discussion completed by Physician/HARLEY with patient: Verbal Pre-procedure timeout performed: yes us Oksana NATION IN CLINIC/BEDSIDE ORDERABLES Final Result * MO ARTHROCENTESIS/ASPIRATION/INJECTION SMALL JOINT/BURSA WO U/S GUIDANCE (03/25/2025 [...] NATION IN CLINIC/BEDSIDE ORDERABLES Final Result * MO ARTHROCENTESIS/ASPIRATION/INJECTION MAJOR JOINT/BURSA W/O U/S GUIDANCE (03/25/2025 2:45 PM EDT) Oksana Peña PA - 03/25/2025 2:45 PM EDT CHAPIS Butler 03/25/2025 4:22 PM L Inj/Asp: L knee [...] Final Result from Last 3 Months Insurance [facility] MEDICARE Member Subscriber Plan / Payer (Ef fective 2025-Present) Name:Kendrick Landon Relation to Subscriber:Self Name:Kendrick Landon Payer ID:[id number] Group ID:Not on file Type:Not on file Address: [place] [address] [place] [address] [facility] [employer] Member Subscriber Plan / Payer (Ef fective 2024-Present) Name:Kendrick Landon Relation to Subscriber:Self Name:Landon, Kendrick Guadalupe Payer ID:[id number] Group ID:[id number] Type:Not on file Address: [place] [address] [place] [address] Care Teams Telephoto Engineer Relationship Specialty Start Date End Date Rosa Banegas MD [facility] [place], [place] [id number] PCP - General Internal Medicine 03/25/25
== END 2025-05-09 14:01 | disposition home or self-care (01) ==
LOC: HO.HSMS 13:16
PROVIDERS: PCP Internal Medicine; Visit Provider Psychiatry & Neurology Neurology
DX: G25.2 Other specified forms of tremor (principal)
CPT/HCPCS: 99204; G2211

== ENCOUNTER → 2025-05-09 13:15 | Outpatient (BNVA) | payer OTHER, SELFPAY | PROVIDERS: PCP Internal Medicine; Visit Provider Psychiatry & Neurology Neurology | DX: G25.2 Other specified forms of tremor (principal); M54.12 Radiculopathy, cervical region | CPT/HCPCS: 99202 ==

== ENCOUNTER 2025-06-12 10:45 | Outpatient (REF) | payer OTHER, SELFPAY ==
--- NOTE | ~2025-06-12 | MR_ITS ---
EXAMINATION: MR BRAIN WITHOUT CONTRAST CLINICAL INFORMATION: G 25.2 COMPARISON: None available. TECHNIQUE: MRI of the brain was obtained using routine sequences without contrast. FINDINGS: No restricted diffusion. No acute intracranial hemorrhage, mass effect, midline shift, hydrocephalus or herniation. Berg-white matter differentiation is normal. Bilateral, a few, scattered, white matter hyperintense T2 FLAIR signal foci involving centrum semiovale and marshall radiata. No abnormal susceptibility signal in the substantia nigra. Posterior cranial fossa contents demonstrated no signal abnormality or mass effect. Normal position of the cerebellar tonsils. Sellar/suprasellar region is normal. Flow-void signal within the main cerebral vessels is normal. Polypoid mucosal thickening, paranasal sinuses. MR/MR head/brain wo con IMPRESSION: No acute brain abnormality. Nonspecific white matter T2 FLAIR signal. Electronically signed by: Zeb Mendoza MD 06/13/2025 06:38 AM EST
--- NOTE | ~2025-06-12 | MR_ITS ---
EXAMINATION: MR CERVICAL SPINE WITHOUT CONTRAST CLINICAL INFORMATION: M54.12. Radiculopathy, cervical region. COMPARISON: None available. TECHNIQUE: MRI of the cervical spine was obtained using routine sequences without contrast. FINDINGS: Craniocervical junction is intact. Normal position of the cerebellar tonsils. No bone marrow STIR signal abnormality. 11 mm intrinsic hyperintense T1 bone marrow signal at C7, likely intraosseous hemangioma. No gross signal abnormality in the cervical spinal cord. Multilevel disc desiccation and marginal osteophyte formation from C3-4 to C6-7 pronounced at C5-6. Grade 1 retrolisthesis C5-6. Buckling deformity of the dorsal aspect of the thecal sac secondary to ligamentum flavum hypertrophy at C5-6 and C6-7 levels. C2-3: No disc herniation. No neuroforamina stenosis. C3-4: Left-sided disc osteophyte compresses formation. No central spinal canal or neuroforamina stenosis. C4-5: Broad-based disc osteophyte compresses formation. Reduced AP diameter of the thecal sac. Bilateral neuroforamina narrowing on a degenerative basis. C5-6: Broad-based disc osteophyte compresses formation resulting in ventral deformity of the thecal sac. Hypertrophy of ligamentum flavum. Bilateral neuroforamina stenosis on a degenerative basis. C6-7: Left disc osteophyte compresses formation resulting in ventral deformity of the thecal sac. No neuroforamina stenosis. C7-T1: No disc herniation. No neuroforamina stenosis. No prevertebral compartment hematoma, mass or fluid collection. Flow-void signal within the mean vessels is normal. Codominant vertebral arteries. MR/MR cervical spine wo con IMPRESSION: Multilevel cervical spondylosis C3-4 to C6-7 pronounced at C5-6 resulting in central spinal canal and bilateral neuroforamina stenosis. No cord compression, cord edema and or myelopathy. Electronically signed by: Zeb Mendoza MD 06/13/2025 06:45 AM EST
--- OUTSIDE RECORDS SUMMARY | 2025-06-12 10:48 | XMS_ITS | Clinical Summary ---
Author Organization [address] [place] [address] [place] [phone] Phone Care Team Providers Care Customer Solutions Coordinator Name Role Phone Rosa Banegas MD Primary Care Provider [phone] Allergies Active Allergy Reactions Criticality Noted Date [...] colchicine (COLCRYS) 0.6 mg tablet 03/21/2025 Active Active Problems Problem Noted Date Diagnosed [...] AM EDT Office Visit Orthopedic Surgery - [place] [address] [place] [phone] Oksana Rockwell PA Arthritis of knee, right (Primary Dx); Wrist tendonitis 03/25/2025 2:45 PM EDT Office Visit Orthopedic Surgery [facility] [address] [place] [phone] Oksana Rockwell PA Primary osteoarthritis of both [...] on file Sexual Orientation Not on file Last Filed Vital Signs Vital Sign Reading [...] 08/27/2013 Depression Screening 06/30/2024 COVID-19 Vaccine ( - season) 2025 05/18/2024, 04/26/2023, 12/19/2021, Additional history [...] Procedure Name Priority Date/Time Associated Diagnosis Comments OR ARTHROCENTESIS/ASPI RATION/INJECTION MAJOR JOINT/BURSA W/O U/S GUIDANCE Routine 04/22/2025 10:15 AM EDT Arthritis of knee, right OR INJECTION SINGLE TENDON SHEATH OR LIGAMENT APONEUROSIS Routine 04/22/2025 10:15 AM EDT Wrist tendonitis OR ARTHROCENTESIS/ASPI RATION/INJECTION SMALL JOINT/BURSA WO U/S GUIDANCE Routine 03/25/2025 2:45 PM EDT Pain of right thumb OR ARTHROCENTESIS/ASPI RATION/INJECTION MAJOR JOINT/BURSA W/O U/S GUIDANCE Routine 03/25/2025 2:45 PM EDT Primary osteoarthritis of both knees from Last 3 Months Results * OR INJECTION SINGLE TENDON SHEATH OR LIGAMENT APONEUROSIS (04/22/2025 10:15 AM EDT) Narrative Oksana Rockwell PA - 04/22/2025 10:15 AM EDT CHAPIS [...] NATION IN CLINIC/BEDSIDE ORDERABLES Final Result * OR ARTHROCENTESIS/ASPIRATION/INJECTION MAJOR JOINT/BURSA W/O U/S GUIDANCE (04/22/2025 [...] NATION IN CLINIC/BEDSIDE ORDERABLES Final Result * OR ARTHROCENTESIS/ASPIRATION/INJECTION SMALL JOINT/BURSA WO U/S GUIDANCE (03/25/2025 [...] NATION IN CLINIC/BEDSIDE ORDERABLES Final Result * OR ARTHROCENTESIS/ASPIRATION/INJECTION MAJOR JOINT/BURSA W/O U/S GUIDANCE (03/25/2025 [...] patient: Verbal Pre-procedure timeout performed: yes us Oksnaa NATION IN CLINIC/BEDSIDE ORDERABLES Final Result from Last 3 Months Insurance [employer] MEDICARE Member Subscriber Plan / Payer ( fective 2025-Present) Name:Kendrick Landon Relation to Subscriber:Self Name:Kendrick Landon Payer ID:[id number] Group ID:Not on file Type:Not on file Address: [address] [facility] [place] [address] [facility] Member Subscriber Plan / Payer (Ef fective 2024-Present) Name:Kendrick Landon Relation to Subscriber:Self Name:Kendrick Landon Payer ID:[id number] Group ID:[id number] Type:Not on file Address: [place] [address] [place] [address] MEDICAID - [place] Care Teams Customer Solutions Coordinator Relationship Specialty Start Date End Date Rosa Banegas MD [address] [place], [place] [phone] PCP - General Internal Medicine 03/25/25
== END 2025-06-12 10:46 | disposition home or self-care (01) ==
LOC: HO.MRI 10:45
PROVIDERS: PCP Internal Medicine; Visit Provider Psychiatry & Neurology Neurology
DX: G25.2 Other specified forms of tremor (principal); M54.12 Radiculopathy, cervical region; R29.898 Other symptoms and signs involving the musculoskeletal system
CPT/HCPCS: 70551; 72141

== ENCOUNTER → 2025-06-12 10:58 | Outpatient (BNV) | payer OTHER, SELFPAY | PROVIDERS: PCP Internal Medicine; Visit Provider Radiology Diagnostic Radiology | DX: M47.22 Other spondylosis with radiculopathy, cervical region (principal); M48.02 Spinal stenosis, cervical region; G25.2 Other specified forms of tremor | CPT/HCPCS: 70551; 72141 ==